=== PATIENT | female | born 1995 | race Two or more races ===

== ENCOUNTER 2017-04-06 12:09 | Emergency (ER) | payer BC ==
[2017-04-06 12:31] VITALS: BP 106/77
--- NOTE | 2017-04-06 14:02 | EDM.PDOC ---
ED HPI GENERAL MEDICAL PROBLEM - General Chief Complaint: Respiratory Problem Stated Complaint: ASTHMA HARD TO BREATHE Time Seen by Provider: 04/06/17 12:36 Source of Information: Reports: Patient History Limitations: Reports: No Limitations - History of Present Illness INITIAL COMMENTS - FREE TEXT/NARRATIVE: The patient presents with cold symptoms and shortness of breath. She has a history of asthma. She does not have her inhaler and she is running out of nebs for her nebulizer. She has a fever, chills, cough, congestion and runny nose. 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 04/06/17 [History] Albuterol Sulfate 2.5 mg IH Q6HR PRN #20 units 04/06/17 [Rx] Albuterol [IJD: Albuterol HFA] 2 puff .XX Q6HR PRN #8 gm 04/06/17 [Rx] Past Medical History Respiratory History: Reports: Asthma Social & Family History - Tobacco Use Smoking Status *Q: Never Smoker - Recreational Drug Use Recreational Drug Use: No ED ROS GENERAL - Review of Systems Review Of Systems: See Below Constitutional: Reports: Fever, Chills HEENT: Reports: Rhinitis, Other (congestion) Respiratory: Reports: Shortness of Breath, Wheezing, Cough Cardiovascular: Reports: No Symptoms Endocrine: Reports: No Symptoms GI/Abdominal: Reports: No Symptoms : Reports: No Symptoms Musculoskeletal: Reports: No Symptoms ED EXAM, GENERAL - Physical Exam Exam: See Below Exam Limited By: No Limitations General Appearance: Alert, No Apparent Distress Ears: Normal External Exam, Normal Canal, Normal TMs Nose: Clear Rhinorrhea Throat/Mouth: Other (Mild erythema of the pharynx) Head: Atraumatic, Normocephalic Neck: Normal Inspection Respiratory/Chest: No Respiratory Distress, Lungs Clear, Normal Breath Sounds Cardiovascular: Regular Rate, Rhythm, No Edema, No Murmur GI/Abdominal: Soft, Non-Tender, No Organomegaly, No Mass Back Exam: Normal Inspection Extremities: Normal Inspection Course - Vital Signs Last Recorded V/S: Last Vital Signs Temp 98.2 F 04/06/17 12:27 Pulse 100 04/06/17 12:27 Resp 20 04/06/17 12:27 BP 106/77 04/06/17 12:27 Pulse Ox 97 04/06/17 12:27 - Orders/Labs/Meds Labs: Laboratory Tests 04/06/17 Range/Units 13:20 HCG, Qual Negative (NEGATIVE) - Re-Assessments/Exams Free Text/Narrative Re-Assessment/Exam: 04/06/17 14:02 The patient asked if I could see if she is . I am waiting for that now. 04/06/17 14:17 Her HCG is negative. Departure - Departure Time of Disposition: 14:20 Disposition: Home, Self-Care 01 Condition: Good Clinical Impression: Viral upper respiratory illness Asthma Qualifiers: Asthma severity: mild intermittent Asthma complication type: with acute exacerbation Qualified Code(s): J45.21 - Mild intermittent asthma with (acute) exacerbation - Discharge Information Prescriptions: Albuterol [IJD: Albuterol HFA] 2 puff .XX Q6HR PRN #8 gm PRN Reason: Wheezing Albuterol Sulfate 2.5 mg IH Q6HR PRN #20 units PRN Reason: Wheezing Referrals: Ester Patino PA-C [Physician Behavioral Health Worker] - 1 Week Forms: ED Department Discharge Additional Instructions: Take the albuterol as needed for shortness of breath. Take some over the counter cold medicine to help with the symptoms.
== END 2017-04-06 14:51 | disposition home or self-care (01) ==
LOC: JD.ED 12:09
DX: J45.21 Mild intermittent asthma with (acute) exacerbation (principal); J06.9 Acute upper respiratory infection, unspecified
CPT/HCPCS: 36415; 84703; 99283

== ENCOUNTER 2017-04-19 03:03 | Emergency (ER) | payer BC ==
[2017-04-19 03:12] VITALS: BP 124/104
[2017-04-19] MEDS ORDERED: Albuterol/Ipratropium 3.0-0.5 MG/3 ML Neb Soln NEB ONE (03:23)
--- NOTE | 2017-04-19 03:24 | EDM.PDOC ---
ED HPI GENERAL MEDICAL PROBLEM - General Chief Complaint: Asthma Stated Complaint: SHARP PAIN LEFT SIDE Time Seen by Provider: 04/19/17 03:23 Source of Information: Reports: Patient History Limitations: Reports: No Limitations - History of Present Illness INITIAL COMMENTS - FREE TEXT/NARRATIVE: 21-year-old female attends the ED with paroxysmal productive cough which she reports been present for about 3 weeks. She has a history of asthma but is getting no relief with her pro-air inhaler tonight she's used it 6 times. She was in the bar and there was quite a bit of smoke this evening which we have been a trigger. She denies any noted fever or chills. Harsh paroxysmal cough with hoarse voice noted. Aware of postnasal drip symptoms as well. Pain in the left side of her chest from coughing so much. Onset: Other (She believes that she's been sick for the last 3-4 weeks.) Duration: Week(s):, Chronic, Getting Worse Location: Reports: Chest (Paroxysmal cough and shortness of breath. Today he has left-sided chest pain from coughing so much) Severity: Moderate Improves with: Reports: None (No relief from Pro Air inhaler.) Worsens with: Reports: Other Context: Denies: Activity (Coughing and exposure to cool night air.), Exercise, Lifting, Sick Contact, Trauma, Other Associated Symptoms: Reports: Cough (Mostly clear sputum), cough w sputum, Shortness of Breath, Other (Left-sided chest pain with coughing.). 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 04/06/17 [History] Albuterol Sulfate 2.5 mg IH Q6HR PRN #20 units 04/06/17 [Rx] Albuterol [IJD: Albuterol HFA] 2 puff .XX Q6HR PRN #8 gm 04/06/17 [Rx] Codeine/Promethazine [Phenergan with Codeine] 10 ml PO Q6HR PRN #150 ml [Rx] predniSONE [Prednisone] 20 mg PO ASDIRECTED #15 tablet 04/19/17 [Rx] Past Medical History Respiratory History: Reports: Asthma Social & Family History - Tobacco Use Smoking Status *Q: Never Smoker - Recreational Drug Use Recreational Drug Use: No - Living Situation & Occupation Living situation: Reports: Single Occupation: Employed ED ROS GENERAL - Review of Systems Review Of Systems: See Below Constitutional: Reports: Malaise, Weakness, Fatigue. Denies: Fever, Chills HEENT: Reports: Other (Aware of postnasal drip and rhinitis.) Respiratory: Reports: Shortness of Breath, Wheezing, Cough. Denies: Pleuritic Chest Pain, Sputum (Paroxysmal coughing.), Hemoptysis Cardiovascular: Reports: Chest Pain. Denies: Blood Pressure Problem, Claudication (See history of present illness), Dyspnea on Exertion, Edema, Lightheadedness, Orthopnea Endocrine: Reports: No Symptoms GI/Abdominal: Reports: No Symptoms : Reports: No Symptoms Musculoskeletal: Reports: No Symptoms Skin: Reports: No Symptoms Neurological: Reports: No Symptoms Psychiatric: Reports: No Symptoms ED EXAM, GENERAL - Physical Exam Exam: See Below Exam Limited By: No Limitations (Does have an intermittent severe paroxysmal cough with hoarse voice.) General Appearance: Moderate Distress Eye Exam: Bilateral Eye: Normal Inspection Ears: Other (Right tympanic membrane is retracted. Left appears to be normal.) Nose: Normal Mucosa, Other Throat/Mouth: Normal Inspection (No nasal polyps.), Normal Lips, Normal Teeth, Normal Oropharynx Head: Atraumatic, Normocephalic Neck: Normal Inspection, Supple, Non-Tender, Full Range of Motion. No: Lymphadenopathy (L), Lymphadenopathy (R) Respiratory/Chest: Respiratory Distress (Harsh paroxysmal cough with respiratory rate of 20/m. O2 sats are 97% on room air over.), Decreased Breath Sounds (Breath sounds are diminished to posterior 20% of lung mendes.), Rhonchi. No: Crackles, Rales, Wheezing, Stridor Cardiovascular: Normal Peripheral Pulses, Regular Rate, Rhythm, No Edema, No Murmur, Tachycardia (However this is after using promote proper inhaler as 6 in the last few hours.) Peripheral Pulses: 3+: Posterior Tibial (L), Posterior Tibial (R), Dorsalis Pedis (L), Dorsalis Pedis (R) GI/Abdominal: Normal Bowel Sounds, Soft, Non-Tender, No Organomegaly Back Exam: Normal Inspection, Full Range of Motion. No: CVA Tenderness (L), CVA Tenderness (R) Extremities: Normal Inspection, Normal Range of Motion, Non-Tender, No Pedal Edema, Normal Capillary Refill Neurological: Alert, Oriented, CN II-XII Intact, Normal Cognition, Other Psychiatric: Normal Affect, Normal Mood Skin Exam: Warm, Dry, Intact, Normal Color, No Rash Course - Vital Signs Last Recorded V/S: Last Vital Signs Temp 36.4 C 04/19/17 03:10 Pulse 110 H 04/19/17 03:10 Resp 20 04/19/17 03:10 BP 124/104 H 04/19/17 03:10 Pulse Ox 99 04/19/17 03:23 - Orders/Labs/Meds Orders: Active Orders 24 hr Category Date Time Status RT Aerosol Therapy [RC] ASDIRECTED Care 04/19/17 03:23 Active Chest 2V [CR] Stat Exams 04/19/17 03:22 Taken Meds: Medications Discontinued Medications Generic Name Dose Route Start Last Admin Trade Name Freq PRN Reason Stop Dose Admin Albuterol/Ipratropium 3 ml 04/19/17 03:23 04/19/17 03:33 Duoneb 3.0-0.5 Mg/3 Ml NEB 04/19/17 03:24 3 ml ONETIME ONE Administration Prednisone 20 mg 04/19/17 03:44 04/19/17 03:56 Prednisone PO 04/19/17 03:45 20 mg ONETIME ONE Administration Promethazine HCl/Codeine 10 ml 04/19/17 03:43 04/19/17 03:55 Phenergan With Codeine PO 04/19/17 03:44 10 ml ONETIME ONE Administration - Radiology Interpretation Free Text/Narrative:: 21-year-old female presents to the ED because of severe paroxysmal cough and left-sided chest pain. She has a history of asthma with no relief from her pro- air inhaler tonight. She states she's been coughing paroxysmal A. fib about 3 weeks. This suggests viral infective disorder versus seasonal allergy exacerbation of asthma. At time of presentation she is satting at 97% with respiratory rate of 20/m. Mild tachycardia at rest 1 10/m. He has decreased air entry to the lower 25% of lung mendes without any wheezes apparent. She was exposed to good deal cigarette smoke and [employer] party and bar tonight and this may have been a trigger. Since she's been ill for 3 weeks two-view chest x-ray will be obtained. She will be given DuoNeb nebulizer treatment and Phenergan With Codeine cough syrup 10 mils to help with paroxysmal coughing. - Re-Assessments/Exams Free Text/Narrative Re-Assessment/Exam: 04/19/17 03:48 two-view chest x-ray is within normal limits showing no signs of pneumonia. I'm therefore going to give her prednisone 20 mg by mouth now and Phenergan with codeine cough syrup 10 mils by mouth now to alleviate cough. It appears that she may well have a primary viral upper respiratory tract infection with aggravation of the upper respiratory tree. I will discharge her on prednisone 20 mg twice daily for 5 days then 1 tablet in the morning only for another 5 days to reduce inflammation. Cough syrup will be Phenergan With Codeine 7.5-10 mils every 6 hours as needed for relief of cough primarily at bedtime. She will continue to use her pro-air inhaler 2 puffs every 4 hours as needed for relief of paroxysmal cough and/or wheezes. Departure - Departure Time of Disposition: 04:06 Disposition: Home, Self-Care 01 Condition: Fair Clinical Impression: Viral upper respiratory tract infection with cough, Exacerbation of asthma - Discharge Information Prescriptions: Codeine/Promethazine [Phenergan with Codeine] 10 ml PO Q6HR PRN #150 ml PRN Reason: Cough relief predniSONE [Prednisone] 20 mg PO ASDIRECTED #15 tablet Referrals: PCP,None [Primary Care Provider] - Forms: ED Department Discharge, ED Return to Work/School Form Additional Instructions: Evaluation in the emergency room tonight in regards to persistent paroxysmal cough with development of left-sided chest pain due to coughing so much. History suggests intermittent paroxysmal cough for the last 3 weeks. History of asthma. No relief with current albuterol inhaler. On examination no wheezes were identified. Hoarseness of the voice with paroxysmal cough appreciated. Two- view x-ray of the chest was obtained to rule out pneumonia since you have been ill for so long. It did not reveal any signs of infection or pneumonia. Reactive airways disease or asthma has been aggravated by either seasonal pollens or suspect viral upper respiratory tract infection. Treatment is therefore to continue albuterol inhaler 2 puffs every 4 hours as needed for relief of wheezing or shortness of breath. Prednisone 20 mg twice daily for 5 days with breakfast and supper and then one in the morning only for another 5 days to reduce inflammation of the airway. Also cough syrup Phenergan With Codeine 10 mils every 6-8 hours as necessary for relief of severe paroxysmal cough. Usually used mostly at nighttime to aid sleep. He takes about an hour to work. You were given a dose of this medication in the ED as well as DuoNeb nebulizer treatment. Prednisone first dose was also given in the ED this morning. - My Orders Last 24 Hours: My Active Orders 04/19/17 03:22 Chest 2V [CR] Stat 04/19/17 03:23 RT Aerosol Therapy [RC] ASDIRECTED - Assessment/Plan Last 24 Hours: My Active Orders 04/19/17 03:22 Chest 2V [CR] Stat 04/19/17 03:23 RT Aerosol Therapy [RC] ASDIRECTED
[2017-04-19] MEDS ORDERED: Codeine/Promethazine 10-6.25 MG/5 ML Syrup 5 ML UD Cup PO ONE (03:43)
[2017-04-19] MEDS ORDERED: predniSONE 20 MG Tab PO ONE (03:44)
--- NOTE | 2017-04-23 08:18 | CR ---
Chest: Two views of the chest were obtained. Comparison: No previous study. Heart size and mediastinum are within normal limits. Central lung markings are slightly increased with minimal bronchial wall thickening. Lungs otherwise are clear. Bony structures are unremarkable. Impression: 1. Slight bronchial wall thickening which can be seen with chronic asthma. 2. Nothing acute is otherwise seen on two-view chest x-ray. Diagnostic code #2
== END 2017-04-19 04:17 | disposition home or self-care (01) ==
LOC: JD.ED 03:03
DX: J45.901 Unspecified asthma with (acute) exacerbation (principal); J06.9 Acute upper respiratory infection, unspecified
CPT/HCPCS: 71020; 94664; 99285; A9270; 99283

== ENCOUNTER 2017-05-20 11:39 | Emergency (ER) | payer BC ==
[2017-05-20 11:58] VITALS: BP 115/72
[2017-05-20] MEDS ORDERED: Ondansetron 4 MG Tab.DIS PO ONE (13:42)
--- NOTE | 2017-05-20 14:01 | EDM.PDOC ---
ED HPI GENERAL MEDICAL PROBLEM - General Chief Complaint: Gastrointestinal Problem Stated Complaint: NAUSEA Time Seen by Provider: 05/20/17 11:58 Source of Information: Reports: Patient, RN Notes Reviewed - History of Present Illness INITIAL COMMENTS - FREE TEXT/NARRATIVE: 21-year-old female comes in with nausea and vomiting for 2 days. That actually now is somewhat better today with no further vomiting this morning. She has not had a menstrual period for 2 months. Therefore she does have some concern of possibly being . Abdominal or pelvic pain or cramping at this time. No vaginal bleeding or discharge. There has been no diarrhea. She does not feel weak or dizzy when standing or walking. Abdominal Pain Score (Numeric/FACES): 7 - Related Data Allergies Allergy/AdvReac Type Severity Reaction Status Date / Time No Known Allergies Allergy Verified 05/20/17 11:54 Home Meds: Home Meds Albuterol Inhaler. 2 puff INH DAILY 04/06/17 [History] Ondansetron [Zofran ODT] 4 mg PO Q8H PRN #7 tab.dis 05/20/17 [Rx] Past Medical History Respiratory History: Reports: Asthma Social & Family History - Tobacco Use Smoking Status *Q: Never Smoker - Recreational Drug Use Recreational Drug Use: No - Living Situation & Occupation Living situation: Reports: Single Occupation: Employed ED ROS GENERAL - Review of Systems Review Of Systems: See Below Constitutional: Denies: Fever, Chills, Diaphoresis HEENT: Reports: No Symptoms Respiratory: Denies: Shortness of Breath, Pleuritic Chest Pain Cardiovascular: Denies: Chest Pain GI/Abdominal: Reports: Nausea, Vomiting. Denies: Abdominal Pain, Diarrhea Musculoskeletal: Reports: No Symptoms Skin: Reports: No Symptoms ED EXAM, GI/ABD - Physical Exam Exam: See Below General Appearance: Alert, No Apparent Distress Eyes: Bilateral: Normal Appearance Throat/Mouth: Normal Inspection, Normal Oropharynx Head: Atraumatic. No: Facial Swelling Neck: Supple, Full Range of Motion Respiratory/Chest: No Respiratory Distress, Lungs Clear, Normal Breath Sounds Cardiovascular: Regular Rate, Rhythm GI/Abdominal Exam: Soft, Non-Tender. No: Guarding Back Exam: Normal Inspection. No: CVA Tenderness (L), CVA Tenderness (R) Extremities: Normal Inspection, Normal Range of Motion Neurological: Alert, Oriented, No Motor/Sensory Deficits Skin Exam: Warm, Dry, Normal Color Course - Vital Signs Text/Narrative:: HCG was negative Last Recorded V/S: Last Vital Signs Temp 98.0 F 05/20/17 11:55 Pulse 90 05/20/17 11:55 Resp 15 05/20/17 11:55 BP 115/72 05/20/17 11:55 Pulse Ox 99 05/20/17 11:55 - Orders/Labs/Meds Labs: Laboratory Tests 05/20/17 Range/Units 13:20 Urine HCG, Qual Negative (NEGATIVE) Meds: Medications Discontinued Medications Generic Name Dose Route Start Last Admin Trade Name Freq PRN Reason Stop Dose Admin Ondansetron HCl 4 mg 05/20/17 13:42 05/20/17 13:54 Zofran Odt PO 05/20/17 13:43 4 mg ONETIME ONE Administration Departure - Departure Time of Disposition: 14:00 Disposition: Home, Self-Care 01 Condition: Fair Clinical Impression: Vomiting - Discharge Information Prescriptions: Ondansetron [Zofran ODT] 4 mg PO Q8H PRN #7 tab.dis PRN Reason: Nausea/Vomiting Referrals: PCP,None [Primary Care Provider] - Forms: ED Department Discharge Additional Instructions: Clear liquids for the next 4-5 hours, then very careful bland diet as tolerated Zofran, if needed for any further vomiting, follow-up clinic as needed, return to ED if symptoms worsening in any way
== END 2017-05-20 14:03 | disposition home or self-care (01) ==
LOC: JD.ED 11:39
DX: R11.2 Nausea with vomiting, unspecified (principal); J45.909 Unspecified asthma, uncomplicated; Z79.899 Other long term (current) drug therapy
CPT/HCPCS: 81025; 99283; A9270

== ENCOUNTER 2017-06-03 13:33 | Emergency (ER) | payer BC ==
[2017-06-03] MEDS ORDERED: Ketorolac 30 MG/ML SDV IM ONE (14:08)
[2017-06-03] MEDS ORDERED: Ondansetron 4 MG Tab.DIS PO ONE (14:08)
--- NOTE | 2017-06-03 14:11 | EDM.PDOC ---
<Perry Mcnally - Last Filed: 06/05/17 07:19> ED HPI GENERAL MEDICAL PROBLEM - General Chief Complaint: Abdominal Pain Stated Complaint: ABDOMINAL PAIN Time Seen by Provider: 06/03/17 14:01 - Related Data Allergies Allergy/AdvReac Type Severity Reaction Status Date / Time No Known Allergies Allergy Verified 05/20/17 11:54 Home Meds: Home Meds Albuterol Inhaler. 2 puff INH DAILY 04/06/17 [History] Amoxicillin 500 mg PO TID #21 tab 06/03/17 [Rx] Course - Vital Signs Last Recorded V/S: Last Vital Signs Temp 36.2 C 06/03/17 13:48 Pulse 95 06/03/17 16:30 Resp 18 06/03/17 16:30 BP 129/66 06/03/17 16:30 Pulse Ox 98 06/03/17 16:30 - Orders/Labs/Meds Labs: Laboratory Tests 06/03/17 06/03/17 06/03/17 Range/Units 14:21 14:21 14:21 WBC 8.73 (3.98-10.04) K/mm3 RBC 4.38 (3.98-5.22) M/mm3 Hgb 11.9 (11.2-15.7) gm/L Hct 36.9 (34.1-44.9) % MCV 84.2 (79.4-94.8) fl MCH 27.2 (25.6-32.2) pg MCHC 32.2 (32.2-35.5) g/dl RDW Std Deviation 45.4 (36.4-46.3) fL Plt Count 380 H (182-369) K/mm3 MPV 8.8 L (9.4-12.3) fl Neut % (Auto) 67.5 (34.0-71.1) % Lymph % (Auto) 19.9 (19.3-51.7) % Bell % (Auto) 8.1 (4.7-12.5) % Eos % (Auto) 3.8 (0.7-5.8) Baso % (Auto) 0.5 (0.1-1.2) % Neut # (Auto) 5.89 (1.56-6.13) K/mm3 Lymph # (Auto) 1.74 (1.18-3.74) K/mm3 Bell # (Auto) 0.71 H (0.24-0.36) K/mm3 Eos # (Auto) 0.33 (0.04-0.36) K/mm3 Baso # (Auto) 0.04 (0.01-0.08) K/mm3 Sodium 140 (136-145) mEq/L Potassium 4.0 (3.5-5.1) mEq/L Chloride 106 (98-107) mEq/L Carbon Dioxide 24 (21-32) mEq/L Anion Gap 14.0 (5-15) BUN 10 (7-18) mg/dL Creatinine 0.7 (0.55-1.02) mg/dL Est Cr Clr Drug Dosing 102.24 mL/min Estimated GFR (MDRD) > 60 (>60) mL/min BUN/Creatinine Ratio 14.3 (14-18) Glucose 95 (74-106) mg/dL Calcium 8.4 L (8.5-10.1) mg/dL Total Bilirubin 0.3 (0.2-1.0) mg/dL AST 12 L (15-37) U/L ALT 14 (14-59) U/L Alkaline Phosphatase 45 L (46-116) U/L C-Reactive Protein < 0.2 (<1.0) mg/dL Total Protein 7.3 (6.4-8.2) g/dl Albumin 3.7 (3.4-5.0) g/dl Globulin 3.6 gm/dL Albumin/Globulin Ratio 1.0 (1-2) HCG, Qual (NEGATIVE) HCG, Quant 1867.0 mIU/mL Urine Color (Yellow) Urine Appearance (Clear) Urine pH (5.0-8.0) Ur Specific [place] (1.005-1.030) Urine Protein (Negative) Urine Glucose (UA) (Negative) Urine Ketones (Negative) Urine Occult Blood (Negative) Urine Nitrite (Negative) Urine Bilirubin (Negative) Urine Urobilinogen (0.2-1.0) Ur Leukocyte Esterase (Negative) Urine RBC (0-5) /hpf Urine WBC (0-5) /hpf Ur Epithelial Cells (0-5) /hpf Urine Bacteria (FEW) /hpf Urine Mucus (FEW) /hpf Urine Opiates Screen (NEGATIVE) Ur Buprenorphine Scrn (NEGATIVE) Ur Oxycodone Screen (NEGATIVE) Urine Methadone Screen (NEGATIVE) Ur Propoxyphene Screen (NEGATIVE) Ur Barbiturates Screen (NEGATIVE) Ur Tricyclics Screen (NEGATIVE) Ur Phencyclidine Scrn (NEGATIVE) Ur Amphetamine Screen (NEGATIVE) U Methamphetamines Scrn (NEGATIVE) U Benzodiazepines Scrn (NEGATIVE) U Cocaine Metab Screen (NEGATIVE) U Marijuana (THC) Screen (NEGATIVE) 06/03/17 06/03/17 06/03/17 Range/Units 14:35 14:35 14:35 WBC (3.98-10.04) K/mm3 RBC (3.98-5.22) M/mm3 Hgb (11.2-15.7) gm/L Hct (34.1-44.9) % MCV (79.4-94.8) fl MCH (25.6-32.2) pg MCHC (32.2-35.5) g/dl RDW Std Deviation (36.4-46.3) fL Plt Count (182-369) K/mm3 MPV (9.4-12.3) fl Neut % (Auto) (34.0-71.1) % Lymph % (Auto) (19.3-51.7) % Bell % (Auto) (4.7-12.5) % Eos % (Auto) (0.7-5.8) Baso % (Auto) (0.1-1.2) % Neut # (Auto) (1.56-6.13) K/mm3 Lymph # (Auto) (1.18-3.74) K/mm3 Bell # (Auto) (0.24-0.36) K/mm3 Eos # (Auto) (0.04-0.36) K/mm3 Baso # (Auto) (0.01-0.08) K/mm3 Sodium (136-145) mEq/L Potassium (3.5-5.1) mEq/L Chloride (98-107) mEq/L Carbon Dioxide (21-32) mEq/L Anion Gap (5-15) BUN (7-18) mg/dL Creatinine (0.55-1.02) mg/dL Est Cr Clr Drug Dosing mL/min Estimated GFR (MDRD) (>60) mL/min BUN/Creatinine Ratio (14-18) Glucose (74-106) mg/dL Calcium (8.5-10.1) mg/dL Total Bilirubin (0.2-1.0) mg/dL AST (15-37) U/L ALT (14-59) U/L Alkaline Phosphatase (46-116) U/L C-Reactive Protein (<1.0) mg/dL Total Protein (6.4-8.2) g/dl Albumin (3.4-5.0) g/dl Globulin gm/dL Albumin/Globulin Ratio (1-2) HCG, Qual Positive H (NEGATIVE) HCG, Quant mIU/mL Urine Color Yellow (Yellow) Urine Appearance Slt cloudy H (Clear) Urine pH 7.0 (5.0-8.0) Ur Specific [place] 1.025 (1.005-1.030) Urine Protein Negative (Negative) Urine Glucose (UA) Negative (Negative) Urine Ketones Negative (Negative) Urine Occult Blood 1+ H (Negative) Urine Nitrite Positive H (Negative) Urine Bilirubin Negative (Negative) Urine Urobilinogen 0.2 (0.2-1.0) Ur Leukocyte Esterase 1+ H (Negative) Urine RBC 0-5 (0-5) /hpf Urine WBC 10-20 H (0-5) /hpf Ur Epithelial Cells 0-5 (0-5) /hpf Urine Bacteria Many H (FEW) /hpf Urine Mucus Not seen (FEW) /hpf Urine Opiates Screen Negative (NEGATIVE) Ur Buprenorphine Scrn Negative (NEGATIVE) Ur Oxycodone Screen Negative (NEGATIVE) Urine Methadone Screen Negative (NEGATIVE) Ur Propoxyphene Screen Negative (NEGATIVE) Ur Barbiturates Screen Negative (NEGATIVE) Ur Tricyclics Screen Negative (NEGATIVE) Ur Phencyclidine Scrn Negative (NEGATIVE) Ur Amphetamine Screen Negative (NEGATIVE) U Methamphetamines Scrn Negative (NEGATIVE) U Benzodiazepines Scrn Negative (NEGATIVE) U Cocaine Metab Screen Negative (NEGATIVE) U Marijuana (THC) Screen Negative (NEGATIVE) Meds: Medications Discontinued Medications Generic Name Dose Route Start Last Admin Trade Name Freq PRN Reason Stop Dose Admin Ketorolac Tromethamine 30 mg 06/03/17 14:08 06/03/17 14:18 Toradol IM 06/03/17 14:09 30 mg ONETIME ONE Administration Ondansetron HCl 4 mg 06/03/17 14:08 06/03/17 14:18 Zofran Odt PO 06/03/17 14:09 4 mg ONETIME ONE Administration - Re-Assessments/Exams Free Text/Narrative Re-Assessment/Exam: 06/05/17 07:19 urine culture is back. Is growing Escherichia coli greater than 100,000 colony-forming units per mL. It is sensitive to all antibiotics. Patient was started on amoxicillin 500 3 times a day which should cover this organism. Departure - Departure Disposition: Home, Self-Care 01 Clinical Impression: , Constipation, Urinary tract infection - Discharge Information Prescriptions: Amoxicillin 500 mg PO TID #21 tab Instructions: Constipation, Adult, [id number], Urinary Tract Infection, Adult Referrals: PCP,None [Primary Care Provider] - Chandra Olivares MD [Physician] - Forms: ED Department Discharge Additional Instructions: Take the amoxicillin one tablet 3 times a day for 7 days as prescribed. This medication has been [place]. For the nausea recommend [id number] Dramamine. For the constipation recommend [id number] Colace or Metamucil. For pain may take Tylenol. Avoid ibuprofen, aspirin, NSAIDs, Aleve, etc. during . Make sure you are drinking plenty of fluids. Drink approximately half of your body weight in ounces and fluids every day. Follow-up with OB this week or next week for a recheck of your symptoms and help to establish dates. At the [facility] recommend Dr. Olivares, Dr. Senior or Dr. Coker. Please call [phone] to schedule with a provider at [facility]. If you would like a female see a provider, see a provider at [facility]. recommend Dr. Arthur or Dr. Tran. Please call [phone] to schedule the provider at [place]. Please return to the ER if your symptoms change or worsen. <Marisol Serrano - Last Filed: 06/06/17 07:49> ED HPI GENERAL MEDICAL PROBLEM - General Source of Information: Reports: Patient History Limitations: Reports: No Limitations - History of Present Illness INITIAL COMMENTS - FREE TEXT/NARRATIVE: 21-year-old female presents for evaluation and treatment of abdominal pain. Patient reports that is located in her lower abdomen. Reports it is episodic in nature. She reports that it was this worse morning this is why she presented to the ER today. Has been going on since around May 18. She states it as a 10 out of 10 when she woke this morning. She was seen in the ER 05-20-17. She had a negative hCG and was given Zofran. She has not followed up for the abdominal pain. Patient reports associated symptoms of nausea and vomiting. Reports that she vomited one time this morning. Reports that her last bowel movement was yesterday. No fevers, dysuria, hematuria, constipation, diarrhea, melena or hematochezia. She reports no decreased appetite. Reports last menstrual period was about 3 months ago. Patient denies any ill contacts or any recent antibiotics. She denies any illicit drug use. Patient reports she relocated from [place] about 2 months ago. No other recent travel. Denies any previous surgeries to her abdomen. Lower Abdomen Pain Score (Numeric/FACES): 10 Past Medical History Respiratory History: Reports: Asthma Social & Family History - Tobacco Use Smoking Status *Q: Current Every Day Smoker Years of Tobacco use: 1 Packs/Tins Daily: 0.5 - Caffeine Use Caffeine Use: Reports: Tea - Recreational Drug Use Recreational Drug Use: No - Living Situation & Occupation Living situation: Reports: Single Occupation: Employed ED ROS GENERAL - Review of Systems Review Of Systems: See Below Constitutional: Denies: Fever, Decreased Appetite HEENT: Denies: Ear Pain, Throat Pain Respiratory: Denies: Cough GI/Abdominal: Reports: Abdominal Pain, Nausea, Vomiting. Denies: Constipation, Diarrhea, Hematochezia, Melena : Reports: No Symptoms. Denies: Dysuria, Hematuria Musculoskeletal: Denies: Back Pain ED EXAM, GI/ABD - Physical Exam Exam: See Below Exam Limited By: No Limitations General Appearance: Alert, WD/WN, No Apparent Distress Respiratory/Chest: No Respiratory Distress, Lungs Clear, Normal Breath Sounds Cardiovascular: Normal Peripheral Pulses, Regular Rate, Rhythm, No Murmur GI/Abdominal Exam: Normal Bowel Sounds, Soft, Tender (generalized), Other ( negative mubursnies sign, negative murphys sign). No: Distended, Guarding, Rigid Neurological: Alert, Oriented, Normal Cognition Psychiatric: Normal Affect, Normal Mood Skin Exam: Warm, Dry, Normal Color Course - Orders/Labs/Meds Labs: Laboratory Tests 06/03/17 06/03/17 06/03/17 Range/Units 14:21 14:21 14:21 WBC 8.73 (3.98-10.04) K/mm3 RBC 4.38 (3.98-5.22) M/mm3 Hgb 11.9 (11.2-15.7) gm/L Hct 36.9 (34.1-44.9) % MCV 84.2 (79.4-94.8) fl MCH 27.2 (25.6-32.2) pg MCHC 32.2 (32.2-35.5) g/dl RDW Std Deviation 45.4 (36.4-46.3) fL Plt Count 380 H (182-369) K/mm3 MPV 8.8 L (9.4-12.3) fl Neut % (Auto) 67.5 (34.0-71.1) % Lymph % (Auto) 19.9 (19.3-51.7) % Bell % (Auto) 8.1 (4.7-12.5) % Eos % (Auto) 3.8 (0.7-5.8) Baso % (Auto) 0.5 (0.1-1.2) % Neut # (Auto) 5.89 (1.56-6.13) K/mm3 Lymph # (Auto) 1.74 (1.18-3.74) K/mm3 Bell # (Auto) 0.71 H (0.24-0.36) K/mm3 Eos # (Auto) 0.33 (0.04-0.36) K/mm3 Baso # (Auto) 0.04 (0.01-0.08) K/mm3 Sodium 140 (136-145) mEq/L Potassium 4.0 (3.5-5.1) mEq/L Chloride 106 (98-107) mEq/L Carbon Dioxide 24 (21-32) mEq/L Anion Gap 14.0 (5-15) BUN 10 (7-18) mg/dL Creatinine 0.7 (0.55-1.02) mg/dL Est Cr Clr Drug Dosing 102.24 mL/min Estimated GFR (MDRD) > 60 (>60) mL/min BUN/Creatinine Ratio 14.3 (14-18) Glucose 95 (74-106) mg/dL Calcium 8.4 L (8.5-10.1) mg/dL Total Bilirubin 0.3 (0.2-1.0) mg/dL AST 12 L (15-37) U/L ALT 14 (14-59) U/L Alkaline Phosphatase 45 L (46-116) U/L C-Reactive Protein < 0.2 (<1.0) mg/dL Total Protein 7.3 (6.4-8.2) g/dl Albumin 3.7 (3.4-5.0) g/dl Globulin 3.6 gm/dL Albumin/Globulin Ratio 1.0 (1-2) HCG, Qual (NEGATIVE) HCG, Quant 1867.0 mIU/mL Urine Color (Yellow) Urine Appearance (Clear) Urine pH (5.0-8.0) Ur Specific [place] (1.005-1.030) Urine Protein (Negative) Urine Glucose (UA) (Negative) Urine Ketones (Negative) Urine Occult Blood (Negative) Urine Nitrite (Negative) Urine Bilirubin (Negative) Urine Urobilinogen (0.2-1.0) Ur Leukocyte Esterase (Negative) Urine RBC (0-5) /hpf Urine WBC (0-5) /hpf Ur Epithelial Cells (0-5) /hpf Urine Bacteria (FEW) /hpf Urine Mucus (FEW) /hpf Urine Opiates Screen (NEGATIVE) Ur Buprenorphine Scrn (NEGATIVE) Ur Oxycodone Screen (NEGATIVE) Urine Methadone Screen (NEGATIVE) Ur Propoxyphene Screen (NEGATIVE) Ur Barbiturates Screen (NEGATIVE) Ur Tricyclics Screen (NEGATIVE) Ur Phencyclidine Scrn (NEGATIVE) Ur Amphetamine Screen (NEGATIVE) U Methamphetamines Scrn (NEGATIVE) U Benzodiazepines Scrn (NEGATIVE) U Cocaine Metab Screen (NEGATIVE) U Marijuana (THC) Screen (NEGATIVE) 06/03/17 06/03/17 06/03/17 Range/Units 14:35 14:35 14:35 WBC (3.98-10.04) K/mm3 RBC (3.98-5.22) M/mm3 Hgb (11.2-15.7) gm/L Hct (34.1-44.9) % MCV (79.4-94.8) fl MCH (25.6-32.2) pg MCHC (32.2-35.5) g/dl RDW Std Deviation (36.4-46.3) fL Plt Count (182-369) K/mm3 MPV (9.4-12.3) fl Neut % (Auto) (34.0-71.1) % Lymph % (Auto) (19.3-51.7) % Bell % (Auto) (4.7-12.5) % Eos % (Auto) (0.7-5.8) Baso % (Auto) (0.1-1.2) % Neut # (Auto) (1.56-6.13) K/mm3 Lymph # (Auto) (1.18-3.74) K/mm3 Bell # (Auto) (0.24-0.36) K/mm3 Eos # (Auto) (0.04-0.36) K/mm3 Baso # (Auto) (0.01-0.08) K/mm3 Sodium (136-145) mEq/L Potassium (3.5-5.1) mEq/L Chloride (98-107) mEq/L Carbon Dioxide (21-32) mEq/L Anion Gap (5-15) BUN (7-18) mg/dL Creatinine (0.55-1.02) mg/dL Est Cr Clr Drug Dosing mL/min Estimated GFR (MDRD) (>60) mL/min BUN/Creatinine Ratio (14-18) Glucose (74-106) mg/dL Calcium (8.5-10.1) mg/dL Total Bilirubin (0.2-1.0) mg/dL AST (15-37) U/L ALT (14-59) U/L Alkaline Phosphatase (46-116) U/L C-Reactive Protein (<1.0) mg/dL Total Protein (6.4-8.2) g/dl Albumin (3.4-5.0) g/dl Globulin gm/dL Albumin/Globulin Ratio (1-2) HCG, Qual Positive H (NEGATIVE) HCG, Quant mIU/mL Urine Color Yellow (Yellow) Urine Appearance Slt cloudy H (Clear) Urine pH 7.0 (5.0-8.0) Ur Specific [place] 1.025 (1.005-1.030) Urine Protein Negative (Negative) Urine Glucose (UA) Negative (Negative) Urine Ketones Negative (Negative) Urine Occult Blood 1+ H (Negative) Urine Nitrite Positive H (Negative) Urine Bilirubin Negative (Negative) Urine Urobilinogen 0.2 (0.2-1.0) Ur Leukocyte Esterase 1+ H (Negative) Urine RBC 0-5 (0-5) /hpf Urine WBC 10-20 H (0-5) /hpf Ur Epithelial Cells 0-5 (0-5) /hpf Urine Bacteria Many H (FEW) /hpf Urine Mucus Not seen (FEW) /hpf Urine Opiates Screen Negative (NEGATIVE) Ur Buprenorphine Scrn Negative (NEGATIVE) Ur Oxycodone Screen Negative (NEGATIVE) Urine Methadone Screen Negative (NEGATIVE) Ur Propoxyphene Screen Negative (NEGATIVE) Ur Barbiturates Screen Negative (NEGATIVE) Ur Tricyclics Screen Negative (NEGATIVE) Ur Phencyclidine Scrn Negative (NEGATIVE) Ur Amphetamine Screen Negative (NEGATIVE) U Methamphetamines Scrn Negative (NEGATIVE) U Benzodiazepines Scrn Negative (NEGATIVE) U Cocaine Metab Screen Negative (NEGATIVE) U Marijuana (THC) Screen Negative (NEGATIVE) - Radiology Interpretation Free Text/Narrative:: KUB of the abdomen shows increased stool throughout the colon. No air fluid lines - Re-Assessments/Exams Free Text/Narrative Re-Assessment/Exam: 06/03/17 16:14 I reviewed the labs and x-ray results with the patient. Her abdominal pain and nausea is likely from her , urinary tract infection or possibly be could be from constipation. I will start her on antibiotics for the UTI. She will be given a list of medications that are ok to take during for the constipation and nausea. I will have her follow-up with OB to establish dates and because of the UTI. Discharge instructions as documented. Departure - Departure Time of Disposition: 16:16 Condition: Good
--- NOTE | 2017-06-03 15:01 | CR ---
Abdomen: Supine view of the abdomen was obtained. Comparison: No previous study. Bowel gas pattern is normal. No abnormal calcifications or soft tissue abnormality is seen. Bony structures are unremarkable. Impression: 1. No abnormality is seen on supine abdominal x-ray. Diagnostic code #1
[2017-06-03 16:51] VITALS: BP 129/66
== END 2017-06-03 16:30 | disposition home or self-care (01) ==
LOC: JD.ED 13:33
DX: O99.619 Diseases of the digestive system complicating pregnancy, unspecified trimester (principal); K59.01 Slow transit constipation; O23.40 Unspecified infection of urinary tract in pregnancy, unspecified trimester; O99.519 Diseases of the respiratory system complicating pregnancy, unspecified trimester; J45.909 Unspecified asthma, uncomplicated; O99.330 Smoking (tobacco) complicating pregnancy, unspecified trimester; F17.210 Nicotine dependence, cigarettes, uncomplicated; Z79.899 Other long term (current) drug therapy
CPT/HCPCS: 36415; 74000; 80053; 80306; 81001; 84702; 84703; 85025; 86140; 87086; 87088; 87186; 96372; 99284; A9270; J1885; 99283

== ENCOUNTER 2017-07-14 09:29 | Emergency (ER) | payer BC ==
[2017-07-14 09:47] VITALS: BP 109/69
[2017-07-14] MEDS ORDERED: Lactated Ringers 1,000 ML IV ONE (10:52)
[2017-07-14] MEDS ORDERED: Metoclopramide 10 MG/2 ML SDV IVPUSH ONE (10:53)
[2017-07-14] MEDS ORDERED: Sodium Chloride 0.9% 10 ML Syringe FLUSH PRN (10:53)
--- NOTE | 2017-07-14 12:27 | EDM.PDOC ---
ED HPI GENERAL MEDICAL PROBLEM - General Chief Complaint: Gastrointestinal Problem Stated Complaint: ABDOMINAL PAIN Time Seen by Provider: 07/14/17 10:47 Source of Information: Reports: Patient, Old Records (clinic ob notes) History Limitations: Reports: No Limitations - History of Present Illness INITIAL COMMENTS - FREE TEXT/NARRATIVE: 21-year-old female presents for evaluation treatment of nausea and vomiting. Patient is approximately 11 weeks Last menstrual period was sometime in March. . She is currently complaining of nausea and vomiting. Vomited about 4or 5 times yesterday but has not vomited today. She reports she can't keep anything down. She is having some cramps on the left side of her pelvis but no back pain, dysuria, vaginal bleeding or fevers. Patient reports she had an early OB ultrasound and states everything is fine with her . Patient reports she has been prescribed diclegis for nausea but was not able to afford it and therefore has not filled it. - Related Data Allergies Allergy/AdvReac Type Severity Reaction Status Date / Time No Known Allergies Allergy Verified 07/14/17 09:47 Home Meds: Home Meds Albuterol Inhaler. 2 puff INH DAILY 04/06/17 [History] Cephalexin [IJD: Cephalexin] 500 mg PO .EVERY 8 HOURS #21 cap 07/14/17 [Rx] Cephalexin. 1 tab PO QID 07/14/17 [History] Past Medical History Respiratory History: Reports: Asthma Genitourinary History: Reports: UTI, Recurrent Social & Family History - Tobacco Use Smoking Status *Q: Never Smoker Years of Tobacco use: 1 Packs/Tins Daily: 0.5 - Caffeine Use Caffeine Use: Reports: None - Recreational Drug Use Recreational Drug Use: No - Living Situation & Occupation Living situation: Reports: Single Occupation: Employed ED ROS GENERAL - Review of Systems Review Of Systems: See Below Constitutional: Denies: Fever GI/Abdominal: Reports: Abdominal Pain (left sided lower abdominal cramps), Nausea, Vomiting : Reports: Other (no vaginal bleeding). Denies: Dysuria ED EXAM - Physical Exam Exam: See Below Exam Limited By: No Limitations General Appearance: Alert, WD/WN, No Apparent Distress Ears: Normal External Exam Nose: Normal Inspection Throat/Mouth: Normal Inspection, Normal Lips, Normal Voice, No Airway Compromise , Other (moist mucus membranes) Respiratory/Chest: No Respiratory Distress, Lungs Clear, Normal Breath Sounds Cardiovascular: Normal Peripheral Pulses, Regular Rate, Rhythm, No Murmur GI/Abdominal Exam: Normal Bowel Sounds, Soft, Non-Tender Heart Tones: Present Heart Tones per Min: 170 Back Exam: Normal Inspection Neurological: Alert, Oriented, Normal Cognition Psychiatric: Normal Affect, Normal Mood Skin Exam: Warm, Dry, Normal Color Course - Vital Signs Last Recorded V/S: Last Vital Signs Temp 36.4 C 07/14/17 09:45 Pulse 84 07/14/17 09:45 Resp 16 07/14/17 09:45 BP 109/69 07/14/17 09:45 Pulse Ox 98 07/14/17 09:45 - Orders/Labs/Meds Orders: Active Orders 24 hr Category Date Time Status Heart Tones [RC] ASDIRECTED Care 07/14/17 10:53 Active Peripheral IV Care [RC] . DIRECTED Care 07/14/17 10:53 Active CULTURE URINE [RM] Stat Lab 07/14/17 12:20 Received Peripheral IV Insertion Adult [OM.PC] Routine Oth 07/14/17 10:52 Ordered Labs: Laboratory Tests 07/14/17 07/14/17 07/14/17 Range/Units 11:11 11:11 12:20 WBC 6.96 (3.98-10.04) K/mm3 RBC 4.56 (3.98-5.22) M/mm3 Hgb 12.3 (11.2-15.7) gm/L Hct 37.7 (34.1-44.9) % MCV 82.7 (79.4-94.8) fl MCH 27.0 (25.6-32.2) pg MCHC 32.6 (32.2-35.5) g/dl RDW Std Deviation 45.3 (36.4-46.3) fL Plt Count 342 (182-369) K/mm3 MPV 9.1 L (9.4-12.3) fl Neut % (Auto) 68.9 (34.0-71.1) % Lymph % (Auto) 21.6 (19.3-51.7) % [place] % (Auto) 6.6 (4.7-12.5) % Eos % (Auto) 2.4 (0.7-5.8) Baso % (Auto) 0.4 (0.1-1.2) % Neut # (Auto) 4.79 (1.56-6.13) K/mm3 Lymph # (Auto) 1.50 (1.18-3.74) K/mm3 [place] # (Auto) 0.46 H (0.24-0.36) K/mm3 Eos # (Auto) 0.17 (0.04-0.36) K/mm3 Baso # (Auto) 0.03 (0.01-0.08) K/mm3 Sodium 138 (136-145) mEq/L Potassium 4.0 (3.5-5.1) mEq/L Chloride 105 (98-107) mEq/L Carbon Dioxide 22 (21-32) mEq/L Anion Gap 15.0 (5-15) BUN 9 (7-18) mg/dL Creatinine 0.6 (0.55-1.02) mg/dL Est Cr Clr Drug Dosing 119.28 mL/min Estimated GFR (MDRD) > 60 (>60) mL/min BUN/Creatinine Ratio 15.0 (14-18) Glucose 88 (74-106) mg/dL Calcium 8.8 (8.5-10.1) mg/dL Total Bilirubin 0.3 (0.2-1.0) mg/dL AST 17 (15-37) U/L ALT 18 (14-59) U/L Alkaline Phosphatase 37 L (46-116) U/L Total Protein 7.1 (6.4-8.2) g/dl Albumin 3.6 (3.4-5.0) g/dl Globulin 3.5 gm/dL Albumin/Globulin Ratio 1.0 (1-2) Urine Color Yellow (Yellow) Urine Appearance Slt cloudy H (Clear) Urine pH 7.0 (5.0-8.0) Ur Specific [place] 1.015 (1.005-1.030) Urine Protein Negative (Negative) Urine Glucose (UA) Negative (Negative) Urine Ketones Negative (Negative) Urine Occult Blood Trace-intact H (Negative) Urine Nitrite Negative (Negative) Urine Bilirubin Negative (Negative) Urine Urobilinogen 0.2 (0.2-1.0) Ur Leukocyte Esterase 3+ H (Negative) Urine RBC 0-5 (0-5) /hpf Urine WBC 40-50 H (0-5) /hpf Ur Epithelial Cells 5-10 H (0-5) /hpf Urine Bacteria Moderate H (FEW) /hpf Urine Mucus Not seen (FEW) /hpf Urine Trichomonas Few Meds: Medications Discontinued Medications Generic Name Dose Route Start Last Admin Trade Name Evon PRN Reason Stop Dose Admin Lactated Ringer's 1,000 mls @ 999 mls/hr 07/14/17 10:52 07/14/17 11:26 Ringers, Lactated IV 07/14/17 11:52 999 mls/hr .BOLUS ONE Administration Metoclopramide HCl 5 mg 07/14/17 10:53 07/14/17 11:26 Reglan IVPUSH 07/14/17 10:54 5 mg ONETIME ONE Administration Sodium Chloride 10 ml 07/14/17 10:53 07/14/17 11:26 Saline Flush FLUSH 10 ml ASDIRECTED PRN Administration Keep Vein Open - Re-Assessments/Exams Free Text/Narrative Re-Assessment/Exam: 07/14/17 12:59 I reviewed the lab results with the patient. Awaiting heart tones. She is eating rice at this point. I will have her do inqu-xem-aeletkl medications. I'll write her prescription for a diclegis like compound at [facility] which is more affordable than the prescription tfor diclegis . Patient has a Urinary tract infection. Review of her records from the clinic shows she was started on a seven-day course of cephalexin on 06-29-17. She tells me that she is was started on the and she still is 3 days left. She takes 2-4 tabs of cephalexin per day. Obviously not taking this as prescribed. Review of her previous culture showed Escherichia coli was susceptible to cephalexin. 07/14/17 13:00 heart tones are present 170 bpm. We will discharge her home at this time. Discharge instructions as documented. Departure - Departure Time of Disposition: 13:01 Disposition: Home, Self-Care 01 Condition: Good Clinical Impression: , Urinary tract infection, Nausea - Discharge Information Prescriptions: Cephalexin [IJD: Cephalexin] 500 mg PO .EVERY 8 HOURS #21 cap Instructions: Urinary Tract Infection, Adult, Nausea and Vomiting, Adult Referrals: PCP,None [Primary Care Provider] - Terry Coker MD [Physician] - Forms: ED Department Discharge Additional Instructions: Take the prescription for a the diclegis like prescription to [facility] pharmacy to have this compounded for you. Take 1 At hours sleep. may increase to 3 times a day if needed for nausea and vomiting. Follow-up with Dr. Coker next week as planned. Cephalexin 1 tab 3 times a day 7 days. make sure you are drinking plenty of fluids. Drink about half you body weight in ounces of fluids every day. if you cannot afford the prescription of [facility] recommend [id number] Dramamine, michael, vitamin B6 or Unisom for nausea. Please return to the ER if your symptoms change or worsen. - My Orders Last 24 Hours: My Active Orders 07/14/17 10:52 Peripheral IV Insertion Adult [OM.PC] Routine 07/14/17 10:53 Heart Tones [RC] ASDIRECTED Peripheral IV Care [RC] . DIRECTED 07/14/17 12:20 CULTURE URINE [RM] Stat - Assessment/Plan Last 24 Hours: My Active Orders 07/14/17 10:52 Peripheral IV Insertion Adult [OM.PC] Routine 07/14/17 10:53 Heart Tones [RC] ASDIRECTED Peripheral IV Care [RC] . DIRECTED 07/14/17 12:20 CULTURE URINE [RM] Stat
== END 2017-07-14 13:42 | disposition home or self-care (01) ==
LOC: JD.ED 09:29
DX: O23.41 Unspecified infection of urinary tract in pregnancy, first trimester (principal); Z3A.11 11 weeks gestation of pregnancy; Z79.899 Other long term (current) drug therapy
CPT/HCPCS: 36415; 80053; 81001; 85025; 87086; 96361; 96374; 99284; J2765; J7050; J7120; 99283

== ENCOUNTER 2017-10-10 21:42 | Emergency (ER) | payer SELFPAY ==
[2017-10-10 21:56] VITALS: BP 137/87
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
== END 2017-10-10 22:30 | disposition home or self-care (01) ==
LOC: JD.ED 21:42
DX: O9A.212 Injury, poisoning and certain other consequences of external causes complicating pregnancy, second trimester (principal); S00.83XA Contusion of other part of head, initial encounter; O21.9 Vomiting of pregnancy, unspecified; O99.512 Diseases of the respiratory system complicating pregnancy, second trimester; J45.909 Unspecified asthma, uncomplicated; W51.XXXA Accidental striking against or bumped into by another person, initial encounter; Y99.0 Civilian activity done for income or pay; Z79.899 Other long term (current) drug therapy
CPT/HCPCS: 99283

== ENCOUNTER 2017-11-10 09:11 | Inpatient (IN) | payer SELFPAY ==
[2017-11-10] MEDS ORDERED: Acetaminophen/oxyCODONE 325-5 MG Tab PO ONE (12:26)
[2017-11-10] MEDS ORDERED: cefTRIAXone 2 GM, Lidocaine 1% 2.1 ML IM ONE ×2 (12:31)
--- NOTE | 2017-11-10 14:18 | US ---
Abdominal ultrasound: Multiple real-time images were obtained of the abdomen. Right-sided hydronephrosis is seen. This is most likely due to hydronephrosis of . Several small filling defects are seen within the dilated collecting systems which may represent globular debris or poorly shadowing renal stones. Left kidney is unremarkable. Pancreas is incompletely seen. Visualized portions of the pancreas are unremarkable. Liver shows no focal parenchymal abnormality. Small polyp is noted within the gallbladder measuring 4 mm. No definite shadowing gallstones are seen. No gallbladder wall thickening or biliary duct dilatation is seen. Aorta shows no aneurysmal dilatation. Inferior vena cava is patent. Portal vein shows normal hepatopedal flow. Impression: 1. Right-sided hydronephrosis. This most likely represents hydronephrosis of if patient has no symptoms of right ureteral obstruction. 2. Two filling defects within the dilated collecting system of the right kidney which show no significant shadowing. Uncertain if this represents globular debris or poorly shadowing renal stones. 3. Small gallbladder polyp. No additional abnormality is definitely seen on abdominal ultrasound exam. Diagnostic code #3
[2017-11-10] MEDS ORDERED: Lactated Ringers 1,000 ML IV ONE (15:17)
[2017-11-10] MEDS ORDERED: Ondansetron 4 MG Tab.DIS PO PRN (15:17)
[2017-11-10] MEDS ORDERED: Sodium Chloride 0.9% 10 ML Syringe FLUSH PRN (15:17)
[2017-11-10] MEDS ORDERED: HYDROmorphone 1 MG/ML Syringe IVPUSH PRN (15:21)
[2017-11-10] MEDS ORDERED: Lactated Ringers 1,000 ML IV SCH (15:30)
[2017-11-10] MEDS: Sodium Chloride 0.9% 1,000 ML IV ONE ×2 (16:26→19:46)
[2017-11-10] MEDS: cefTRIAXone 2 GM in Sodium Chloride 0.9% 100 ML IV SCH (16:31)
[2017-11-10] MEDS: Magnesium Hydroxide 400 MG/5 ML Susp 30 ML Cup PO SCH (16:32)
[2017-11-10] MEDS: Docusate Sodium 100 MG Cap PO SCH (16:32)
[2017-11-10] MEDS: Acetaminophen/oxyCODONE 325-5 MG Tab PO PRN (19:45)
[2017-11-10] MEDS: Sodium Chloride 0.9% 1,000 ML IV SCH (20:33)
--- NOTE | 2017-11-10 22:08 | PCM.LDHP ---
L&D History of Present Illness - General Date of Service: 11/10/17 Admit Problem/Dx: Patient Status Order with Admit Dx/Problem 11/10/17 10:17 Patient Status [ADT] Routine 11/10/17 16:00 Admission Status [Patient Status] [ADT] Routine Admission Diagnosis/Problem Admission Diagnosis/Problem Source of Information: Patient History Limitations: Reports: No Limitations - History of Present Illness Introduction:: Ama Suárez is a 22 year old at 28 weeks 0 days who presented for evaluation of abdominal pain. She reports that the pain is located in her lower stomach more on the right side of her abdomen and radiates to her back. She reports that the pain is constant and has not been made worse or better with any interventions. She rates the pain at 10/10. She does not recall any event that lead to the pain starting. She denies anything similar in the past. She was previously diagnosed with recurrent UTIs in and was on Macrobid 100 mg PO nightly for UTI prophylaxis. She reports that she has been taking the Macrobid nightly as prescribed. She denies any vaginal bleeding or leakage of fluid. She reports good movement. She denies any uterine cramping or contractions. Timing/Duration: Reports: day(s): (3), getting worse Location, : Reports: Abdomen, Lower back Quality: Reports: Sharp Severity: Severe Pain Score: 10 Improves with: Reports: None Worsens with: Reports: None Present Illness Comments:: Ama Suárez is a 22 year old at 28 weeks 0 days by 6 week ultrasound. She has had routine care since 6 weeks. Her has been complicated by chlamydia infection in s/p treatment, recurrent UTI in on Macrobid for prophylaxis, anemia of , and prolonged nausea and vomiting of resolved. Her labs show B positive blood type with negative antibodies. She had a hemoglobin of 12.2 on 2016. Her platelets were 400 on 06/29/2017. She is rubella immune and had negative RPR, HBsAg and HIV. Her initial GC/CT swab was negative. Her urine culture was positive for E. coli at her initial visit and she was treated for this with Macrobid. She had a positive swab for chlamydia on 08/16/2017. She had a negative test of cure swab on 09/07/2017. She had a normal anatomy U/S on . Her 1 hour GTT was 109. Her hemoglobin was 9.9 on 10/16/2017 and she was started on iron supplementation at that time. She had a urine culture on 09/07 that showed enterococcus faecalis with greater than 100,000 CFU. She was treated with Macrobid at that time. She had a repeat urine culture that again showed positive enterococcus faecalis on 10/10/2017 and was started on Macrobid for treatment and then transitioned to Macrobid 100 mg nightly for prophylaxis. - Related Data Allergies/Adverse Reactions: Allergies Allergy/AdvReac Type Severity Reaction Status Date / Time No Known Allergies Allergy Verified 10/10/17 23:26 Home Medications: Home Meds Albuterol Inhaler. 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: Psychiatric History: Reports: Depression, Suicide Attempt, Suicidal Ideation, Other (See Below) Other Psychiatric History: attempt 2011, 2014, pt denies current depression Social & Family History - Family History Family Medical History: Noncontributory - Tobacco Use Smoking Status *Q: Former Smoker Years of Tobacco use: 2 Packs/Tins Daily: 0.5 Used Tobacco, but Quit: Yes Month/Year Tobacco Last Used: 01/2017 Second Hand Smoke Exposure: No - Caffeine Use Caffeine Use: Reports: None - Recreational Drug Use Recreational Drug Use: No - Living Situation & Occupation Living situation: Reports: Single Occupation: Employed H&P Review of Systems - Review of Systems: Review Of Systems: See Below General: Reports: Malaise, Fatigue. Denies: Fever, Chills HEENT: Denies: Visual Changes Pulmonary: Reports: Wheezing. Denies: Shortness of Breath Cardiovascular: Denies: Chest Pain, Palpitations Gastrointestinal: Reports: Abdominal Pain, Constipation, Nausea. Denies: Diarrhea, Vomiting Genitourinary: Reports: Dysuria, Frequency, Burning, Flank Pain Musculoskeletal: Reports: Back Pain. Denies: Joint Pain, Muscle Pain Neurological: Denies: Headache L&D Exam - Exam Exam: See Below - Vital Signs Vital Signs: Last Vital Signs Temp 37.2 C 11/10/17 20:35 Pulse 93 11/10/17 20:35 Resp 14 11/10/17 20:35 BP 112/53 L 11/10/17 20:35 Pulse Ox 96 11/10/17 20:35 Weight: 65.317 kg - OB Specific Contraction Duration (sec): No contractions Contraction Frequency (min): None Contraction Intensity: Irritability Movement: Active Heart Tones: Present Heart Tones per Min: 130 (positive accelerations) Heart Rate (FHR) Variability: Moderate (6-25 bmp) - Exam General: Alert, Oriented HEENT: EOMI Neck: Supple, Trachea Midline Lungs: Clear to Auscultation, Normal Respiratory Effort Cardiovascular: Regular Rate, Regular Rhythm GI/Abdominal Exam: Normal Bowel Sounds, Soft, Guarding, Tender. No: Rigid, Rebound Back Exam: CVA Tenderness (R). No: CVA Tenderness (L) Extremities: Non-Tender, No Pedal Edema Skin: Warm, Dry, Intact - Patient Data Lab Results Last 24 hrs: Laboratory Results - last 24 hr 11/10/17 11/10/17 11/10/17 Range/Units 10:34 10:34 10:34 WBC 11.98 H (3.98-10.04) K/mm3 RBC 3.36 L (3.98-5.22) M/mm3 Hgb 9.6 L (11.2-15.7) gm/L Hct 29.8 L (34.1-44.9) % MCV 88.7 (79.4-94.8) fl MCH 28.6 (25.6-32.2) pg MCHC 32.2 (32.2-35.5) g/dl RDW Std Deviation 41.5 (36.4-46.3) fL Plt Count 339 (182-369) K/mm3 MPV 8.4 L (9.4-12.3) fl Neut % (Auto) 77.5 H (34.0-71.1) % Lymph % (Auto) 11.8 L (19.3-51.7) % [place] % (Auto) 9.5 (4.7-12.5) % Eos % (Auto) 0.6 L (0.7-5.8) Baso % (Auto) 0.2 (0.1-1.2) % Neut # (Auto) 9.29 H (1.56-6.13) K/mm3 Lymph # (Auto) 1.41 (1.18-3.74) K/mm3 [place] # (Auto) 1.14 H (0.24-0.36) K/mm3 Eos # (Auto) 0.07 (0.04-0.36) K/mm3 Baso # (Auto) 0.02 (0.01-0.08) K/mm3 Sodium 136 (136-145) mEq/L Potassium 3.7 (3.5-5.1) mEq/L Chloride 103 (98-107) mEq/L Carbon Dioxide 23 (21-32) mEq/L Anion Gap 13.7 (5-15) BUN 6 L (7-18) mg/dL Creatinine 0.5 L (0.55-1.02) mg/dL Est Cr Clr Drug Dosing 141.95 mL/min Estimated GFR (MDRD) > 60 (>60) mL/min BUN/Creatinine Ratio 12.0 L (14-18) Glucose 88 (74-106) mg/dL Calcium 8.2 L (8.5-10.1) mg/dL Amylase 51 (25-115) U/L Lipase 108 (73-393) U/L Urine Color (Yellow) Urine Appearance (Clear) Urine pH (5.0-8.0) Ur Specific [place] (1.005-1.030) Urine Protein (Negative) Urine Glucose (UA) (Negative) Urine Ketones (Negative) Urine Occult Blood (Negative) Urine Nitrite (Negative) Urine Bilirubin (Negative) Urine Urobilinogen (0.2-1.0) Ur Leukocyte Esterase (Negative) Urine RBC (0-5) /hpf Urine WBC (0-5) /hpf Ur Epithelial Cells (0-5) /hpf Urine Bacteria (FEW) /hpf Urine Mucus (FEW) /hpf 11/10/17 Range/Units 11:15 WBC (3.98-10.04) K/mm3 RBC (3.98-5.22) M/mm3 Hgb (11.2-15.7) gm/L Hct (34.1-44.9) % MCV (79.4-94.8) fl MCH (25.6-32.2) pg MCHC (32.2-35.5) g/dl RDW Std Deviation (36.4-46.3) fL Plt Count (182-369) K/mm3 MPV (9.4-12.3) fl Neut % (Auto) (34.0-71.1) % Lymph % (Auto) (19.3-51.7) % [place] % (Auto) (4.7-12.5) % Eos % (Auto) (0.7-5.8) Baso % (Auto) (0.1-1.2) % Neut # (Auto) (1.56-6.13) K/mm3 Lymph # (Auto) (1.18-3.74) K/mm3 [place] # (Auto) (0.24-0.36) K/mm3 Eos # (Auto) (0.04-0.36) K/mm3 Baso # (Auto) (0.01-0.08) K/mm3 Sodium (136-145) mEq/L Potassium (3.5-5.1) mEq/L Chloride (98-107) mEq/L Carbon Dioxide (21-32) mEq/L Anion Gap (5-15) BUN (7-18) mg/dL Creatinine (0.55-1.02) mg/dL Est Cr Clr Drug Dosing mL/min Estimated GFR (MDRD) (>60) mL/min BUN/Creatinine Ratio (14-18) Glucose (74-106) mg/dL Calcium (8.5-10.1) mg/dL Amylase (25-115) U/L Lipase (73-393) U/L Urine Color Yellow (Yellow) Urine Appearance Clear (Clear) Urine pH 7.0 (5.0-8.0) Ur Specific [place] 1.020 (1.005-1.030) Urine Protein 2+ H (Negative) Urine Glucose (UA) Negative (Negative) Urine Ketones Negative (Negative) Urine Occult Blood 1+ H (Negative) Urine Nitrite Negative (Negative) Urine Bilirubin Negative (Negative) Urine Urobilinogen 0.2 (0.2-1.0) Ur Leukocyte Esterase 3+ H (Negative) Urine RBC 10-20 H (0-5) /hpf Urine WBC Too numerous to cnt H (0-5) /hpf Ur Epithelial Cells 10-20 H (0-5) /hpf Urine Bacteria Many H (FEW) /hpf Urine Mucus Not seen (FEW) /hpf Result Diagrams: 11/10/17 10:34 11/10/17 10:34 Scott Results Last 24 hrs: Laboratory Tests 11/10/17 11/10/17 11/10/17 Range/Units 10:34 10:34 10:34 WBC 11.98 H (3.98-10.04) K/mm3 RBC 3.36 L (3.98-5.22) M/mm3 Hgb 9.6 L (11.2-15.7) gm/L Hct 29.8 L (34.1-44.9) % MCV 88.7 (79.4-94.8) fl MCH 28.6 (25.6-32.2) pg MCHC 32.2 (32.2-35.5) g/dl RDW Std Deviation 41.5 (36.4-46.3) fL Plt Count 339 (182-369) K/mm3 MPV 8.4 L (9.4-12.3) fl Neut % (Auto) 77.5 H (34.0-71.1) % Lymph % (Auto) 11.8 L (19.3-51.7) % [place] % (Auto) 9.5 (4.7-12.5) % Eos % (Auto) 0.6 L (0.7-5.8) Baso % (Auto) 0.2 (0.1-1.2) % Neut # (Auto) 9.29 H (1.56-6.13) K/mm3 Lymph # (Auto) 1.41 (1.18-3.74) K/mm3 [place] # (Auto) 1.14 H (0.24-0.36) K/mm3 Eos # (Auto) 0.07 (0.04-0.36) K/mm3 Baso # (Auto) 0.02 (0.01-0.08) K/mm3 Sodium 136 (136-145) mEq/L Potassium 3.7 (3.5-5.1) mEq/L Chloride 103 (98-107) mEq/L Carbon Dioxide 23 (21-32) mEq/L Anion Gap 13.7 (5-15) BUN 6 L (7-18) mg/dL Creatinine 0.5 L (0.55-1.02) mg/dL Est Cr Clr Drug Dosing 141.95 mL/min Estimated GFR (MDRD) > 60 (>60) mL/min BUN/Creatinine Ratio 12.0 L (14-18) Glucose 88 (74-106) mg/dL Calcium 8.2 L (8.5-10.1) mg/dL Amylase 51 (25-115) U/L Lipase 108 (73-393) U/L Urine Color (Yellow) Urine Appearance (Clear) Urine pH (5.0-8.0) Ur Specific [place] (1.005-1.030) Urine Protein (Negative) Urine Glucose (UA) (Negative) Urine Ketones (Negative) Urine Occult Blood (Negative) Urine Nitrite (Negative) Urine Bilirubin (Negative) Urine Urobilinogen (0.2-1.0) Ur Leukocyte Esterase (Negative) Urine RBC (0-5) /hpf Urine WBC (0-5) /hpf Ur Epithelial Cells (0-5) /hpf Urine Bacteria (FEW) /hpf Urine Mucus (FEW) /hpf 11/10/17 Range/Units 11:15 WBC (3.98-10.04) K/mm3 RBC (3.98-5.22) M/mm3 Hgb (11.2-15.7) gm/L Hct (34.1-44.9) % MCV (79.4-94.8) fl MCH (25.6-32.2) pg MCHC (32.2-35.5) g/dl RDW Std Deviation (36.4-46.3) fL Plt Count (182-369) K/mm3 MPV (9.4-12.3) fl Neut % (Auto) (34.0-71.1) % Lymph % (Auto) (19.3-51.7) % [place] % (Auto) (4.7-12.5) % Eos % (Auto) (0.7-5.8) Baso % (Auto) (0.1-1.2) % Neut # (Auto) (1.56-6.13) K/mm3 Lymph # (Auto) (1.18-3.74) K/mm3 [place] # (Auto) (0.24-0.36) K/mm3 Eos # (Auto) (0.04-0.36) K/mm3 Baso # (Auto) (0.01-0.08) K/mm3 Sodium (136-145) mEq/L Potassium (3.5-5.1) mEq/L Chloride (98-107) mEq/L Carbon Dioxide (21-32) mEq/L Anion Gap (5-15) BUN (7-18) mg/dL Creatinine (0.55-1.02) mg/dL Est Cr Clr Drug Dosing mL/min Estimated GFR (MDRD) (>60) mL/min BUN/Creatinine Ratio (14-18) Glucose (74-106) mg/dL Calcium (8.5-10.1) mg/dL Amylase (25-115) U/L Lipase (73-393) U/L Urine Color Yellow (Yellow) Urine Appearance Clear (Clear) Urine pH 7.0 (5.0-8.0) Ur Specific [place] 1.020 (1.005-1.030) Urine Protein 2+ H (Negative) Urine Glucose (UA) Negative (Negative) Urine Ketones Negative (Negative) Urine Occult Blood 1+ H (Negative) Urine Nitrite Negative (Negative) Urine Bilirubin Negative (Negative) Urine Urobilinogen 0.2 (0.2-1.0) Ur Leukocyte Esterase 3+ H (Negative) Urine RBC 10-20 H (0-5) /hpf Urine WBC Too numerous to cnt H (0-5) /hpf Ur Epithelial Cells 10-20 H (0-5) /hpf Urine Bacteria Many H (FEW) /hpf Urine Mucus Not seen (FEW) /hpf Imaging Impressions Last 24 hrs: 1. Right sided hydronephrosis - Most likely physiologic as a result of 2. Two filling defects within the right kidney - Possible globular debris vs poorly shadowing stones 3. Gallbladder polyp - Likely physiologic - Problem List (1) 28 weeks gestation of SNOMED Code(s): 11661297 ICD Code: Z3A.28 - 28 WEEKS GESTATION OF Status: Acute Current Visit: Yes (2) Pyelonephritis affecting in third trimester SNOMED Code(s): 26090633, 975545346, [id number] ICD Code: O23.03 - INFECTIONS OF KIDNEY IN , THIRD TRIMESTER Status: Acute Current Visit: Yes Problem List Initiated/Reviewed/Updated: Yes Orders Last 24hrs: Active Orders 24 hr Category Date Time Status Admission Status [Patient Status] [ADT] Routine ADT 11/10/17 16:00 Active Patient Status [ADT] Routine ADT 11/10/17 10:17 Active Heart Tones [RC] Q4HR Care 11/10/17 15:17 Active Non Stress Test [RC] PER UNIT ROUTINE Care 11/10/17 10:17 Active May Shower [RC] ASDIRECTED Care 11/10/17 15:17 Active Notify Provider Vital Signs [RC] ASDIRECTED Care 11/10/17 15:18 Active Notify Provider [RC] PRN Care 11/10/17 15:17 Active Peripheral IV Care [RC] Q2HR Care 11/10/17 15:19 Active Up ad Jeanne [RC] ASDIRECTED Care 11/10/17 15:17 Active Vital Signs [RC] Q4HR Care 11/10/17 10:17 Active Regular Diet [DIET] Diet 11/10/17 Lunch Active Acetaminophen/oxyCODONE [Percocet 325-5 MG] Med 11/10/17 15:17 Active 1 tab PO Q6H PRN Acetaminophen/oxyCODONE [Percocet 325-5 MG] Med 11/10/17 15:17 Active 2 tab PO Q6H PRN Docusate Sodium [Colace] Med 11/10/17 17:00 Active 100 mg PO Q12H HYDROmorphone [Dilaudid] Med 11/10/17 15:21 Active 1 mg IVPUSH Q2H PRN Magnesium Hydroxide [Milk of Magnesia] Med 11/10/17 15:30 Active 30 ml PO DAILY Ondansetron [Zofran ODT] Med 11/10/17 15:17 Active 4 mg PO Q4H PRN Ondansetron [Zofran] Med 11/10/17 18:20 Active 4 mg IVPUSH Q8H PRN Vit with Ca/FA/Iron [ Plus Iron] Med 11/11/17 09:00 Active 1 each PO DAILY Sodium Chloride 0.9% [Normal Saline] 1,000 ml Med 11/10/17 15:30 Active IV ASDIRECTED Sodium Chloride 0.9% [Saline Flush] Med 11/10/17 15:17 Active 10 ml FLUSH ASDIRECTED PRN cefTRIAXone [Rocephin] 2 gm Med 11/10/17 15:30 Active Sodium Chloride 0.9% [Normal Saline] 100 ml IV Q24H Peripheral IV Insertion Adult [OM.PC] Routine Oth 11/10/17 15:17 Ordered Resuscitation Status Routine Resus Stat 11/10/17 10:17 Ordered Medication Orders Docusate Sodium (Colace) 100 mg PO Q12H [facility] Last Admin: 11/10/17 16:32 Dose: 100 mg Hydromorphone HCl (Dilaudid) 1 mg IVPUSH Q2H PRN PRN Reason: Pain (severe 7-10) Ceftriaxone Sodium 2 gm/ (Sodium Chloride) 100 mls @ 200 mls/hr IV Q24H [facility] Last Admin: 11/10/17 16:31 Dose: 200 mls/hr Sodium Chloride (Normal Saline) 1,000 mls @ 125 mls/hr IV ASDIRECTED [facility] Last Admin: 11/10/17 20:33 Dose: 125 mls/hr Magnesium Hydroxide (Milk Of Magnesia) 30 ml PO DAILY [facility] Last Admin: 11/10/17 16:32 Dose: 30 ml Ondansetron HCl (Zofran Odt) 4 mg PO Q4H PRN PRN Reason: Nausea/Vomiting Ondansetron HCl (Zofran) 4 mg IVPUSH Q8H PRN PRN Reason: Nausea Oxycodone/Acetaminophen (Percocet 325-5 Mg) 1 tab PO Q6H PRN PRN Reason: Pain (moderate 4-6) Oxycodone/Acetaminophen (Percocet 325-5 Mg) 2 tab PO Q6H PRN PRN Reason: Pain (severe 7-10) Last Admin: 11/10/17 19:45 Dose: 2 tab Prenat Multivit/Julian/Iron/Folic Ac ( Plus Iron) 1 each PO DAILY ELLIOT Sodium Chloride (Saline Flush) 10 ml FLUSH ASDIRECTED PRN PRN Reason: Keep Vein Open Assessment/Plan Comment:: Ama Suárez is a 22 year old at 28 weeks 0 days by 6 week U/ S who likely has pyelonephritis in 1. Abdominal pain in - Patient without any contractions or pelvic pressure. Urinalysis showed leukocyte esterase 3+, blood 1+, WBCs too many to count, negative nitrites. Patient with a history of UTIs in as well as asymptomatic bacteriuria requiring multiple courses of antibiotics. She was started on Macrobid nightly for prophylaxis. This pain may also represent severe constipation vs possible appendicitis. Less likely to be constipation due to severity of pain and also with positive right sided CVA tenderness. Less likely to be appendicitis due to only mild leukocytosis. Other causes of abdominal pain less likely secondary to other normal lab values. Will keep patient for observation secondary to suspected pyelonephritis with significant pain Patient to have IV placed and receive 1 L bolus of NS then to have NS at 125 ml/ hr overnight. Start on ceftriaxone 2 g IV Q 24 hours Routine vitals with temp heart tones every shift with plan for NST prior to discharge Regular diet vitamin daily Possible discharge tomorrow after second dose of ceftriaxone and if pain improved with afebrile status. Will continue to monitor closely Terry Coker MD 10:46 PM 11/10/2017
[2017-11-11] MEDS: Acetaminophen/oxyCODONE 325-5 MG Tab PO PRN ×2 (01:57→13:35)
[2017-11-11] MEDS: Docusate Sodium 100 MG Cap PO SCH ×2 (04:26→18:07)
[2017-11-11] MEDS: Sodium Chloride 0.9% 1,000 ML IV SCH ×2 (04:26→13:40)
[2017-11-11] MEDS: Magnesium Hydroxide 400 MG/5 ML Susp 30 ML Cup PO SCH (08:44)
[2017-11-11] MEDS: Prenatal Multivitamin with Calcium/Folic Acid/Iron Tab PO SCH (08:44)
[2017-11-11] MEDS: Ondansetron 4 MG/2 ML SDV IVPUSH PRN (13:45)
--- NOTE | 2017-11-11 14:42 | PCM.SN ---
- Free Text/Narrative Note: S: Patient reports that she is feeling better this morning. Reports that her right-sided back pain has continued but is more tolerable than it was yesterday. Reports the pain at this time is 8-9/10. She has been using Percocet for pain control throughout the night. Last dose was at 3 AM. Reports that she's been continuing to have significant nausea with emesis with dinner last evening. Has been able to keep liquids down. Minimal appetite at this time. Has not been ambulating due to her back pain. Reports that she is continuing to void without difficulty and is having increased amounts of urine with IV fluids going. Denies any leaking of fluid or vaginal bleeding. Denies any abdominal pain or cramping. Denies any contractions. Reports good movement. O: Vital Signs - 24 hr 11/10/17 11/11/17 20:35 04:28 Temperature 37.2 C 36.8 C Pulse, 93 80 Peripheral Respiratory 14 14 Rate Blood Pressure 112/53 L 103/50 L O2 Sat by Pulse 96 97 Oximetry Physical exam Gen.: Minimal distress, alert and oriented Lungs: Clear to auscultation bilaterally Heart: Regular rate and rhythm Abdomen: Mild tenderness in right lower quadrant without guarding or rebound, no distention, positive bowel sounds, gravid, moderate right-sided CVA tenderness but improved from initial evaluation Extremities: Trace edema in bilateral lower extremities to mid shins Laboratory Tests 11/10/17 11/10/17 11/10/17 Range/Units 10:34 10:34 10:34 WBC 11.98 H (3.98-10.04) K/mm3 RBC 3.36 L (3.98-5.22) M/mm3 Hgb 9.6 L (11.2-15.7) gm/L Hct 29.8 L (34.1-44.9) % MCV 88.7 (79.4-94.8) fl MCH 28.6 (25.6-32.2) pg MCHC 32.2 (32.2-35.5) g/dl RDW Std Deviation 41.5 (36.4-46.3) fL Plt Count 339 (182-369) K/mm3 MPV 8.4 L (9.4-12.3) fl Neut % (Auto) 77.5 H (34.0-71.1) % Lymph % (Auto) 11.8 L (19.3-51.7) % [place] % (Auto) 9.5 (4.7-12.5) % Eos % (Auto) 0.6 L (0.7-5.8) Baso % (Auto) 0.2 (0.1-1.2) % Neut # (Auto) 9.29 H (1.56-6.13) K/mm3 Lymph # (Auto) 1.41 (1.18-3.74) K/mm3 [place] # (Auto) 1.14 H (0.24-0.36) K/mm3 Eos # (Auto) 0.07 (0.04-0.36) K/mm3 Baso # (Auto) 0.02 (0.01-0.08) K/mm3 Sodium 136 (136-145) mEq/L Potassium 3.7 (3.5-5.1) mEq/L Chloride 103 (98-107) mEq/L Carbon Dioxide 23 (21-32) mEq/L Anion Gap 13.7 (5-15) BUN 6 L (7-18) mg/dL Creatinine 0.5 L (0.55-1.02) mg/dL Est Cr Clr Drug Dosing 141.95 mL/min Estimated GFR (MDRD) > 60 (>60) mL/min BUN/Creatinine Ratio 12.0 L (14-18) Glucose 88 (74-106) mg/dL Calcium 8.2 L (8.5-10.1) mg/dL Amylase 51 (25-115) U/L Lipase 108 (73-393) U/L Urine Color (Yellow) Urine Appearance (Clear) Urine pH (5.0-8.0) Ur Specific [place] (1.005-1.030) Urine Protein (Negative) Urine Glucose (UA) (Negative) Urine Ketones (Negative) Urine Occult Blood (Negative) Urine Nitrite (Negative) Urine Bilirubin (Negative) Urine Urobilinogen (0.2-1.0) Ur Leukocyte Esterase (Negative) Urine RBC (0-5) /hpf Urine WBC (0-5) /hpf Ur Epithelial Cells (0-5) /hpf Urine Bacteria (FEW) /hpf Urine Mucus (FEW) /hpf 11/10/17 Range/Units 11:15 WBC (3.98-10.04) K/mm3 RBC (3.98-5.22) M/mm3 Hgb (11.2-15.7) gm/L Hct (34.1-44.9) % MCV (79.4-94.8) fl MCH (25.6-32.2) pg MCHC (32.2-35.5) g/dl RDW Std Deviation (36.4-46.3) fL Plt Count (182-369) K/mm3 MPV (9.4-12.3) fl Neut % (Auto) (34.0-71.1) % Lymph % (Auto) (19.3-51.7) % [place] % (Auto) (4.7-12.5) % Eos % (Auto) (0.7-5.8) Baso % (Auto) (0.1-1.2) % Neut # (Auto) (1.56-6.13) K/mm3 Lymph # (Auto) (1.18-3.74) K/mm3 [place] # (Auto) (0.24-0.36) K/mm3 Eos # (Auto) (0.04-0.36) K/mm3 Baso # (Auto) (0.01-0.08) K/mm3 Sodium (136-145) mEq/L Potassium (3.5-5.1) mEq/L Chloride (98-107) mEq/L Carbon Dioxide (21-32) mEq/L Anion Gap (5-15) BUN (7-18) mg/dL Creatinine (0.55-1.02) mg/dL Est Cr Clr Drug Dosing mL/min Estimated GFR (MDRD) (>60) mL/min BUN/Creatinine Ratio (14-18) Glucose (74-106) mg/dL Calcium (8.5-10.1) mg/dL Amylase (25-115) U/L Lipase (73-393) U/L Urine Color Yellow (Yellow) Urine Appearance Clear (Clear) Urine pH 7.0 (5.0-8.0) Ur Specific [place] 1.020 (1.005-1.030) Urine Protein 2+ H (Negative) Urine Glucose (UA) Negative (Negative) Urine Ketones Negative (Negative) Urine Occult Blood 1+ H (Negative) Urine Nitrite Negative (Negative) Urine Bilirubin Negative (Negative) Urine Urobilinogen 0.2 (0.2-1.0) Ur Leukocyte Esterase 3+ H (Negative) Urine RBC 10-20 H (0-5) /hpf Urine WBC Too numerous to cnt H (0-5) /hpf Ur Epithelial Cells 10-20 H (0-5) /hpf Urine Bacteria Many H (FEW) /hpf Urine Mucus Not seen (FEW) /hpf A/P 22 year old at 28 weeks 1 day with suspected right-sided pyelonephritis * Patient improving at this time but continues to have moderate right-sided CVA tenderness * Continue IV fluids to ensure good hydration with decreased oral intake * Continue Rocephin 2 g IV every 24 hours for treatment of suspected pyelonephritis * Continue with Percocet for pain control as needed, patient may use IV pain medications if oral medications not controlling pain well * Possible discharge this afternoon if patient improves and is able tolerate a regular diet, pain is minimal and is able to be controlled with oral medications , and patient remains afebrile. Possible the patient may need to remain overnight for an additional day of monitoring with IV antibiotics. Terry Coker M.D. 2:42 PM 11/11/2017
[2017-11-11] MEDS: cefTRIAXone 2 GM in Sodium Chloride 0.9% 100 ML IV SCH (15:37)
[2017-11-12] MEDS: Docusate Sodium 100 MG Cap PO SCH (04:06)
[2017-11-12] MEDS: Acetaminophen/oxyCODONE 325-5 MG Tab PO PRN (04:06)
--- NOTE | 2017-11-12 08:15 | PCM.SN ---
- Free Text/Narrative Note: S: Patient reports that she is feeling much better this morning. Reports that her right-sided back pain has improved from yesterday. She has been using Percocet for pain control throughout the night. Last dose was at 3 AM but only required 1 Percocet with that dose. Reports that she's been continuing to have nausea but was able to tolerate dinner last evening. Has increased ambulation now with better pain control. Reports that she is continuing to void without difficulty. Denies any leaking of fluid or vaginal bleeding. Denies any abdominal pain or cramping. Denies any contractions. Reports good movement. Denies any fevers or chills. O: Vital Signs - 24 hr 11/11/17 11/11/17 11/11/17 08:42 13:42 17:00 Temperature 36.9 C Temperature [ 37.1 C Temporal] Pulse, 86 83 Peripheral Pulse, 79 Peripheral [ Brachial] Respiratory 14 15 15 Rate Blood Pressure 108/61 106/68 Blood Pressure 118/64 [Upper Arm] O2 Sat by Pulse 98 98 98 Oximetry 11/11/17 11/11/17 11/12/17 18:06 20:11 00:32 Temperature 36.9 C 37.1 C Temperature [ Temporal] Pulse, 97 85 95 Peripheral Pulse, Peripheral [ Brachial] Respiratory 16 16 Rate Blood Pressure 117/64 103/43 L Blood Pressure [Upper Arm] O2 Sat by Pulse 99 98 98 Oximetry 11/12/17 04:04 Temperature 36.9 C Temperature [ Temporal] Pulse, 80 Peripheral Pulse, Peripheral [ Brachial] Respiratory 15 Rate Blood Pressure 113/54 L Blood Pressure [Upper Arm] O2 Sat by Pulse 97 Oximetry Physical exam Gen.: No acute distress, alert and oriented Lungs: Clear to auscultation bilaterally Heart: Regular rate and rhythm Abdomen: Nontender without guarding or rebound, no distention, positive bowel sounds, gravid, minimal right-sided CVA tenderness Extremities: Trace edema in bilateral lower extremities to mid shins A/P 22 year old at 28 weeks 2 days with suspected right-sided pyelonephritis * Patient improving from previous day at this time with minimal right-sided CVA tenderness * Continue IV fluids to ensure good hydration * Continue Rocephin 2 g IV every 24 hours for treatment of suspected pyelonephritis * Continue with Percocet for pain control as needed * Anticipate discharge this afternoon after next dose of Rocephin and is able tolerate a regular diet, pain is minimal and is able to be controlled with oral medications, and patient remains afebrile. Terry Coker M.D. 8:12 AM 11/12/2017
--- NOTE | 2017-11-12 08:29 | PCM.DCSUM1 ---
Discharge Summary - Hospital Course Free Text/Narrative:: Ama Suárez is a 22 year old at 28 weeks 0 days who presented for evaluation of abdominal pain. She reports that the pain is located in her lower stomach more on the right side of her abdomen and radiates to her back. She reports that the pain is constant and has not been made worse or better with any interventions. She rates the pain at 10/10. She does not recall any event that lead to the pain starting. She denies anything similar in the past. She was previously diagnosed with recurrent UTIs in and was on Macrobid 100 mg PO nightly for UTI prophylaxis. She reports that she has been taking the Macrobid nightly as prescribed. She denies any vaginal bleeding or leakage of fluid. She reports good movement. She denies any uterine cramping or contractions. HPI Initial Comments: Ama Suárez is a 22 year old at 28 weeks 0 days who presented for evaluation of abdominal pain. She reports that the pain is located in her lower stomach more on the right side of her abdomen and radiates to her back. She reports that the pain is constant and has not been made worse or better with any interventions. She rates the pain at 10/10. She does not recall any event that lead to the pain starting. She denies anything similar in the past. She was previously diagnosed with recurrent UTIs in and was on Macrobid 100 mg PO nightly for UTI prophylaxis. She reports that she has been taking the Macrobid nightly as prescribed. She denies any vaginal bleeding or leakage of fluid. She reports good movement. She denies any uterine cramping or contractions. Brief History: Ama Suárez is a 22 year old at 28 weeks 0 days who presented for evaluation of abdominal pain. She reports that the pain is located in her lower stomach more on the right side of her abdomen and radiates to her back. She reports that the pain is constant and has not been made worse or better with any interventions. She rates the pain at 10/10. She does not recall any event that lead to the pain starting. She denies anything similar in the past. She was previously diagnosed with recurrent UTIs in and was on Macrobid 100 mg PO nightly for UTI prophylaxis. She reports that she has been taking the Macrobid nightly as prescribed. She denies any vaginal bleeding or leakage of fluid. She reports good movement. She denies any uterine cramping or contractions. - Discharge Data Discharge Date: 11/12/17 Discharge Disposition: Home, Self-Care 01 Condition: Good - Discharge Diagnosis/Problem(s) (1) 28 weeks gestation of SNOMED Code(s): 42250521 ICD Code: Z3A.28 - 28 WEEKS GESTATION OF Status: Acute (2) Pyelonephritis affecting in third trimester SNOMED Code(s): 30294591, 157763316, 808094517 ICD Code: O23.03 - INFECTIONS OF KIDNEY IN , THIRD TRIMESTER Status: Acute - Patient Summary/Data Complications: None Consults: None Hospital Course: mAa Suárez was admitted for suspected right sided pyelonephritis based on patient's history of asymptomatic bacteriuria, urinary tract infections in and urinalysis. She had initially presented with abdominal pain and had an abdominal ultrasound that did not show any evidence of stones or other pathologies. She did have some mild right-sided hydronephrosis that was suspected to be secondary to changes. She was started on Rocephin 2 g IV every 24 hours after initial diagnosis of suspected palatal nephritis. She was given normal saline 1 L fluid bolus on initial admission. She was then continued on IV fluids normal saline at 125 mL/ h. She had significant nausea with vomiting on hospital day #1 and was treated with IV antiemetics. On hospital day #2 her right-sided CVA tenderness was improving and she was able to tolerate small amounts of regular diet in the evening of hospital day #2. She continued to have moderate amount of pain on the right side and was kept for an additional day with IV antibiotics. On hospital day #3 she continued to do well throughout the day but did have 1 episode of emesis in early afternoon. Her pain was resolved in the morning of hospital day #3. She received a third dose of Rocephin in the afternoon of hospital day #3 and was discharged home after tolerating this infusion. She'll be discharged home on Keflex 500 mg 4 times daily for 2 weeks and then she'll be transitioned to nightly prophylaxis with Keflex 500 mg. She'll follow-up in the clinic in 2 weeks or earlier as needed. - Patient Instructions Diet: Regular Diet as Tolerated Activity: As Tolerated Driving: Do Not Drive (while on narcotic medications) Showering/Bathing: May Shower Notify Provider of: Fever, Increased Pain, Swelling and Redness, Nausea and/or Vomiting - Discharge Plan Prescriptions/Med Rec: Acetaminophen/oxyCODONE [Percocet 325-5 MG] 1 - 2 tab PO Q6H PRN #16 tablet PRN Reason: Pain Cephalexin [Keflex] 500 mg PO Q6H 14 Days #56 capsule Cephalexin [Keflex] 500 mg PO BEDTIME #60 capsule Home Medications: Home Meds Albuterol Inhaler. 2 puff INH DAILY PRN 04/06/17 [History] Ondansetron [Zofran ODT] 4 mg SL Q6H PRN 10/10/17 [History] Vits #93/Iron Fum/FA [ Formula Tablet] 1 tab PO DAILY 10/10/17 [History] Acetaminophen/oxyCODONE [Percocet 325-5 MG] 1 - 2 tab PO Q6H PRN #16 tablet [Rx] Cephalexin [Keflex] 500 mg PO BEDTIME #60 capsule 11/12/17 [Rx] Cephalexin [Keflex] 500 mg PO Q6H 14 Days #56 capsule 11/12/17 [Rx] Docusate Sodium [Colace] 100 mg PO Q12H cap 11/12/17 [Rx] Patient Handouts: Pyelonephritis, Adult, Pyelonephritis, Adult, [id number], Urinary Tract Infection, Adult Referrals: Terry Coker MD [Primary Care Provider] - 11/30/17 (Ask about having a TDaP vaccine at your next appointment.) - Discharge Summary/Plan Comment DC Time >30 min.: No - Patient Data Vitals - Most Recent: Last Vital Signs Temp 36.9 C 11/12/17 04:04 Pulse 80 11/12/17 04:04 Resp 15 11/12/17 04:04 BP 113/54 L 11/12/17 04:04 Pulse Ox 97 11/12/17 04:04 Weight - Most Recent: 65.317 kg I&O - Last 24 hours: Intake & Output 11/11/17 11/12/17 11/12/17 22:59 06:59 14:59 Intake Total 520 1000 Balance 520 1000 Med Orders - Current: Current Medications Docusate Sodium (Colace) 100 mg PO Q12H [facility] Last Admin: 11/12/17 04:06 Dose: 100 mg Hydromorphone HCl (Dilaudid) 1 mg IVPUSH Q2H PRN PRN Reason: Pain (severe 7-10) Ceftriaxone Sodium 2 gm/ (Sodium Chloride) 100 mls @ 200 mls/hr IV Q24H [facility] Last Admin: 11/11/17 15:37 Dose: 200 mls/hr Sodium Chloride (Normal Saline) 1,000 mls @ 125 mls/hr IV ASDIRECTED [facility] Last Admin: 11/11/17 13:40 Dose: 125 mls/hr Magnesium Hydroxide (Milk Of Magnesia) 30 ml PO DAILY [facility] Last Admin: 11/11/17 08:44 Dose: 30 ml Ondansetron HCl (Zofran Odt) 4 mg PO Q4H PRN PRN Reason: Nausea/Vomiting Ondansetron HCl (Zofran) 4 mg IVPUSH Q8H PRN PRN Reason: Nausea Last Admin: 11/11/17 13:45 Dose: 4 mg Oxycodone/Acetaminophen (Percocet 325-5 Mg) 1 tab PO Q6H PRN PRN Reason: Pain (moderate 4-6) Last Admin: 11/12/17 04:06 Dose: 1 tab Oxycodone/Acetaminophen (Percocet 325-5 Mg) 2 tab PO Q6H PRN PRN Reason: Pain (severe 7-10) Last Admin: 11/11/17 01:57 Dose: 2 tab Prenat Multivit/Stand In/Iron/Folic Ac ( Plus Iron) 1 each PO DAILY [facility] Last Admin: 11/11/17 08:44 Dose: 1 each Sodium Chloride (Saline Flush) 10 ml FLUSH ASDIRECTED PRN PRN Reason: Keep Vein Open Discontinued Medications Ceftriaxone Sodium 2 gm/ (Lidocaine HCl 2.1 ml) 0 gm IM ONETIME ONE Stop: 11/10/17 12:32 Last Admin: 11/10/17 22:26 Dose: Not Given Lactated Ringer's (Ringers, Lactated) 1,000 mls @ 999 mls/hr IV .BOLUS ONE Stop: 11/10/17 16:17 Last Admin: 11/10/17 22:25 Dose: Not Given Lactated Ringer's (Ringers, Lactated) 1,000 mls @ 125 mls/hr IV ASDIRECTED [facility] Sodium Chloride (Normal Saline) 1,000 mls @ 999 mls/hr IV ONETIME ONE Stop: 11/10/17 16:24 Last Admin: 11/10/17 19:46 Dose: 999 mls/hr Oxycodone/Acetaminophen (Percocet 325-5 Mg) 2 tab PO ONETIME ONE Stop: 11/10/17 12:27 Last Admin: 11/10/17 12:52 Dose: 2 tab *Q Meaningful Use (DIS) - VTE *Q VTE Criteria *Q: - Stroke *Q Stroke Criteria *Q: - AMI *Q AMI Criteria *Q:
[2017-11-12] MEDS: Sodium Chloride 0.9% 1,000 ML IV SCH (12:50)
[2017-11-12] MEDS: Prenatal Multivitamin with Calcium/Folic Acid/Iron Tab PO SCH (12:52)
[2017-11-12] MEDS: Magnesium Hydroxide 400 MG/5 ML Susp 30 ML Cup PO SCH (12:52)
[2017-11-12] MEDS: cefTRIAXone 2 GM in Sodium Chloride 0.9% 100 ML IV SCH (15:07)
[2017-11-12] MEDS: Ondansetron 4 MG/2 ML SDV IVPUSH PRN (15:12)
[2017-11-12 15:28] VITALS: BP 92/51
== END 2017-11-12 18:30 | disposition home or self-care (01) | DRG 781 ==
LOC: JD.OB 09:11 → JD.OBCHECK 09:11 → JD.OB 16:00 → JD.OBCHECK 16:00 → JD.OB 16:05 → OBSVTOIN 11-11 17:38
PROVIDERS: ADMIT Obstetrics & Gynecology; ATTEND Obstetrics & Gynecology
DX: O23.03 Infections of kidney in pregnancy, third trimester (principal); Z3A.28 28 weeks gestation of pregnancy; Z87.440 Personal history of urinary (tract) infections; Z87.891 Personal history of nicotine dependence
CPT/HCPCS: 36415; 76700; 76700-26; 80048; 81001; 82150; 83690; 85025; A9270-GY; J0696; J2405; J7030; J7040

== ENCOUNTER 2018-01-29 04:37 | Inpatient (IN) | payer MEDICAID ==
[2018-01-29] MEDS ORDERED: ePHEDrine 50 MG/ML SDV IVPUSH PRN (04:55)
[2018-01-29] MEDS ORDERED: Ondansetron 4 MG/2 ML SDV IVPUSH PRN (04:55)
[2018-01-29] MEDS ORDERED: diphenhydrAMINE 50 MG/ML SDV IVPUSH PRN (04:55)
[2018-01-29] MEDS ORDERED: Sodium Chloride 0.9% 10 ML Syringe FLUSH PRN ×2 (05:15→08:08)
[2018-01-29] MEDS ORDERED: Lidocaine 1% 50 ML MDV INJECT PRN (05:15)
[2018-01-29] MEDS ORDERED: Oxytocin/Lactated Ringers 10 UNIT/1,000 ML BAG IV SCH ×3 (05:15→15:35)
[2018-01-29] MEDS ORDERED: Lactated Ringers 1,000 ML ONE (05:24)
[2018-01-29] MEDS: Lactated Ringers 1,000 ML IV SCH ×5 (05:35→11:42)
[2018-01-29] MEDS: Bupivacaine/fentaNYL/NS 100 ML Bag EPIDUR SCH ×2 (06:22→13:05)
[2018-01-29] MEDS: fentaNYL 100 MCG/2 ML SDV EPIDUR PRN ×2 (06:22→09:20)
--- NOTE | 2018-01-29 06:33 | PCM.PREANE ---
Preanesthetic Assessment - Anesthesia/Transfusion/Family Hx Anesthesia History: No Prior Anesthesia Family History of Anesthesia Reaction: No Transfusion History: No Prior Transfusion(s) - Review of Systems General: No Symptoms Pulmonary: No Symptoms Cardiovascular: No Symptoms, Other (Asthma. Inhaler used when she gets a cold.) Gastrointestinal: No Symptoms Neurological: No Symptoms Other: Reports: None - Physical Assessment Pulse: 88 O2 Sat by Pulse Oximetry: 99 Respiratory Rate: 20 Blood Pressure: 142/78 Height: 1.57 m Weight: 69.853 kg ASA Class: 2 Mental Status: Alert & Oriented x3 Airway Class: Mallampati = 1 Dentition: Reports: Normal Dentition Thyro-Mental Finger Breadths: 3 Mouth Opening Finger Breadths: 3 ROM/Head Extension: Full Lungs: Clear to Auscultation, Normal Respiratory Effort Cardiovascular: Regular Rate, Regular Rhythm - Lab Values: Laboratory Last Values WBC 12.79 K/mm3 (3.98-10.04) H 01/29/18 05:25 RBC 3.97 M/mm3 (3.98-5.22) L 01/29/18 05:25 Hgb 9.4 gm/L (11.2-15.7) L 01/29/18 05:25 Hct 30.3 % (34.1-44.9) L 01/29/18 05:25 MCV 76.3 fl (79.4-94.8) L 01/29/18 05:25 MCH 23.7 pg (25.6-32.2) L 01/29/18 05:25 MCHC 31.0 g/dl (32.2-35.5) L 01/29/18 05:25 RDW Std Deviation 43.2 fL (36.4-46.3) 01/29/18 05:25 Plt Count 421 K/mm3 (182-369) H 01/29/18 05:25 MPV 8.8 fl (9.4-12.3) L 01/29/18 05:25 Membrane Rupture Positive H 01/29/18 05:10 - Allergies Allergies/Adverse Reactions: Allergies Allergy/AdvReac Type Severity Reaction Status Date / Time No Known Allergies Allergy Verified 10/10/17 23:26 - Acknowledgements Anesthesia Type Planned: Epidural Pt an Appropriate Candidate for the Planned Anesthesia: Yes Alternatives and Risks of Anesthesia Discussed w Pt/Guardian: Yes Pt/Guardian Understands and Agrees with Anesthesia Plan: Yes PreAnesthesia Questionnaire - Past Health History Medical/Surgical History: Denies Medical/Surgical History Respiratory History: Reports: Asthma Genitourinary History: Reports: Pyelonephritis, STD, UTI, 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: Psychiatric History: Reports: Depression, Suicide Attempt, Suicidal Ideation, Other (See Below) Other Psychiatric History: attempt 2011, 2014, pt denies current depression Hematologic History: Reports: Anemia - Past Surgical History Female Surgical History: Reports: None - HOME MEDS Home Medications: Home Meds Ondansetron [Zofran ODT] 4 mg SL Q6H PRN 10/10/17 [History] Vits #93/Iron Fum/FA [ Formula Tablet] 1 tab PO DAILY 10/10/17 [History] Cephalexin [Keflex] 500 mg PO BEDTIME #60 capsule 11/12/17 [Rx] Docusate Sodium [Colace] 100 mg PO Q12H cap 11/12/17 [Rx] Acetaminophen/oxyCODONE [Percocet 325-5 MG] 1 - 2 tab PO Q6HR PRN 12/03/17 [ History] Cephalexin [Keflex] 500 mg PO Q6H 14 Days #56 capsule 12/03/17 [Rx] - CURRENT (IN HOUSE) MEDS Current Meds: Current Medications Diphenhydramine HCl (Benadryl) 25 mg IVPUSH Q6H PRN PRN Reason: Pruritis Ephedrine Sulfate (Ephedrine Sulfate) 5 mg IVPUSH ASDIRECTED PRN PRN Reason: Hypotension Fentanyl (Sublimaze) 100 mcg EPIDUR ONETIME PRN PRN Reason: Pain Last Admin: 01/29/18 06:22 Dose: 100 mcg Fentanyl/Bupivacaine HCl (Fentanyl/Bupivacaine/Ns 2 Mcg-0.125% 100 Ml) 100 ml EPIDUR ASDIRECTED [facility] Last Admin: 01/29/18 06:22 Dose: 100 ml Lactated Ringer's (Ringers, Lactated) 1,000 mls @ 100 mls/hr IV ASDIRECTED [facility] Last Admin: 01/29/18 06:25 Dose: 999 mls/hr Oxytocin/Lactated Ringer's (Pitocin In Lr 10 Units/1,000 Ml) 10 unit in 1,000 mls @ 500 mls/hr IV .CONTINUOUS ELLIOT Lidocaine HCl (Xylocaine 1%) 50 ml INJECT ONETIME PRN PRN Reason: Breakthrough Pain Ondansetron HCl (Zofran) 4 mg IVPUSH ONETIME PRN PRN Reason: Nausea/Vomiting Sodium Chloride (Saline Flush) 10 ml FLUSH ASDIRECTED PRN PRN Reason: Keep Vein Open Discontinued Medications Lactated Ringer's (Ringers, Lactated) Confirm Administered Dose 1,000 mls @ as directed .ROUTE .K-MED ONE Stop: 01/29/18 05:25
[2018-01-29] MEDS ORDERED: Lactated Ringers 1,000 ML IV SCH (08:15)
--- NOTE | 2018-01-29 08:32 | PCM.LDHP ---
L&D History of Present Illness - General Date of Service: 01/29/18 Admit Problem/Dx: Patient Status Order with Admit Dx/Problem 01/29/18 05:15 Patient Status [ADT] Routine Admission Diagnosis/Problem Admission Diagnosis/Problem with spontaneous rupture of membranes 01/29/18 08:23 Source of Information: Patient History Limitations: Reports: No Limitations - History of Present Illness Introduction:: Ama Suárez is a 22 year old at 39 weeks 3 days by 6 week ultrasound. She presents today complaining of contractions that started at approximately 4 AM. She reports the contractions have been about 2 minutes apart. They were intense enough that they woke her up from sleep. She reports that they are more intense than previous contractions for labor evaluations. Reports the contractions are in 8-9/10. She reports she has been having continuous small amount of leaking of fluid with some light spotting. She reports good movement. Timing/Duration: Reports: sudden onset (At approximately 4 AM), intermittent ( Every 2-3 minutes) Location, : Reports: Abdomen, Lower back, Pelvic Quality: Reports: Pressure, Throbbing Severity: Severe Pain Score: 9 Improves with: Reports: None Worsens with: Reports: None Associated Symptoms: Reports: vaginal fluid, mild amount. Denies: vaginal bleeding Present Illness Comments:: Ama Suárez is a 22 year old at 39 weeks 3 days by 6 week ultrasound. She has had routine care with Dr. Coker starting at 6 weeks gestational age. Her initial labs showed be positive blood type with negative antibody screen. Her hematocrit was 37.7 and hemoglobin of 12.2 with platelets of 400 on 06/29/2017. She is rubella immune. She had RPR nonreactive, hepatitis B surface antigen negative and HIV negative. Her gonorrhea and chlamydia tests were negative on 06/09/2017. Her initial urine culture was positive for Escherichia coli and she was treated for this at that time. She had a normal anatomy ultrasound on 09/18/2017. Her 1 hour glucose test was 109. Her hematocrit was 30.3 and hemoglobin of 9.9 on 10/16/2017. Her platelets were 383. She had a positive chlamydia test on 08/03/2017 and was treated. She had a negative gonorrhea and chlamydia swab on her visit at 2017. Patient was diagnosed with pyelonephritis on 11/11/2017 and was treated with IV antibiotics in the hospital. She was started on Keflex 500 mg nightly for antibiotic prophylaxis at that time. She continued to use Keflex for antibiotic prophylaxis route through manner the . She had a negative GBS screen on 12/28/2017. Her has been complicated by asthma, anemia, recurrent urinary tract infection and pyelonephritis, nausea and vomiting in early , and positive chlamydia with negative test of cure. - Related Data Allergies/Adverse Reactions: Allergies Allergy/AdvReac Type Severity Reaction Status Date / Time No Known Allergies Allergy Verified 10/10/17 23:26 Home Medications: Home Meds Ondansetron [Zofran ODT] 4 mg SL Q6H PRN 10/10/17 [History] Vits #93/Iron Fum/FA [ Formula Tablet] 1 tab PO DAILY 10/10/17 [History] Cephalexin [Keflex] 500 mg PO BEDTIME #60 capsule 11/12/17 [Rx] Docusate Sodium [Colace] 100 mg PO Q12H cap 11/12/17 [Rx] Acetaminophen/oxyCODONE [Percocet 325-5 MG] 1 - 2 tab PO Q6HR PRN 12/03/17 [ History] Cephalexin [Keflex] 500 mg PO Q6H 14 Days #56 capsule 12/03/17 [Rx] Past Medical History - Past Health History Medical/Surgical History: Denies Medical/Surgical History Respiratory History: Reports: Asthma Genitourinary History: Reports: Pyelonephritis, STD, UTI, Recurrent RECEPTION[employer] 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: 0 Psychiatric History: Reports: Depression, Suicide Attempt, Suicidal Ideation, Other (See Below) Other Psychiatric History: attempt 2011, 2015, pt denies current depression Hematologic History: Reports: Anemia - Past Surgical History Female Surgical History: Reports: None Social & Family History - Family History Family Medical History: Noncontributory - Tobacco Use Smoking Status *Q: Never Smoker - Tobacco Core Measures Tobacco Use/Smoking Within Last 30 Days: No - Caffeine Use Caffeine Use: Reports: None - Alcohol Use Alcohol Use History: No - Living Situation & Occupation Living situation: Reports: Single Occupation: Employed H&P Review of Systems - Review of Systems: Review Of Systems: See Below General: Denies: Fever, Chills, Malaise HEENT: Denies: Post Nasal Drip, Sinus Congestion, Sore Throat, Visual Changes Pulmonary: Denies: Shortness of Breath, Wheezing, Cough Cardiovascular: Denies: Chest Pain, Palpitations Gastrointestinal: Reports: Nausea. Denies: Abdominal Pain, Constipation, Diarrhea, Vomiting Genitourinary: Denies: Dysuria, Frequency, Burning, Pain Musculoskeletal: Reports: Back Pain (and hip pain) Skin: Denies: Rash, Wound Psychiatric: Denies: Confusion, Depression, Anxiety Neurological: Denies: Confusion, Headache Hematologic/Lymphatic: Reports: Anemia L&D Exam - Exam Exam: See Below - Vital Signs Vital Signs: Last Vital Signs Temp Pulse 94 01/29/18 07:00 Resp 20 01/29/18 06:32 BP 136/86 01/29/18 07:00 Pulse Ox 99 01/29/18 06:32 Weight: 69.853 kg - OB Specific Contraction Duration (sec): 60 Contraction Frequency (min): 3-5 Contraction Intensity: Moderate to Strong Movement: Active Heart Tones: Present Heart Tones per Min: 125 (+15 x 15 accelerations, no decelerations) Heart Rate (FHR) Variability: Moderate (6-25 bmp) Presentation: Vertex Estimated Weight: 6.5-7 pounds by Julian - Santos Score Santos Score Cervix Position: Anterior Santos Score Consistency: Soft Santos Score Effacement: >80% Santos Score Dilation: 3-4 cm Santos Score Infant's Station: -1 ,0 Santos Score Total: 11 - Exam General: Alert, Oriented HEENT: Conjunctiva Clear, EOMI Neck: Supple, Trachea Midline Lungs: Clear to Auscultation, Normal Respiratory Effort Cardiovascular: Regular Rate, Regular Rhythm GI/Abdominal Exam: Soft, Non-Tender, No Distention, Other (Gravid). No: Guarding, Rebound Genitourinary: Normal external exam Back Exam: Normal Inspection Extremities: Normal Inspection, No Pedal Edema Skin: Warm, Dry, Intact Psychiatric: Alert, Normal Affect, Normal Mood - Patient Data Lab Results Last 24 hrs: Laboratory Results - last 24 hr 01/29/18 01/29/18 01/29/18 Range/Units 05:10 05:25 06:55 WBC 12.79 H (3.98-10.04) K/mm3 RBC 3.97 L (3.98-5.22) M/mm3 Hgb 9.4 L (11.2-15.7) gm/L Hct 30.3 L (34.1-44.9) % MCV 76.3 L (79.4-94.8) fl MCH 23.7 L (25.6-32.2) pg MCHC 31.0 L (32.2-35.5) g/dl RDW Std Deviation 43.2 (36.4-46.3) fL Plt Count 421 H (182-369) K/mm3 MPV 8.8 L (9.4-12.3) fl Urine Color Yellow (Yellow) Urine Appearance Clear (Clear) Urine pH 7.0 (5.0-8.0) Ur Specific [place] 1.020 (1.005-1.030) Urine Protein Negative (Negative) Urine Glucose (UA) Negative (Negative) Urine Ketones Negative (Negative) Urine Occult Blood Negative (Negative) Urine Nitrite Negative (Negative) Urine Bilirubin Negative (Negative) Urine Urobilinogen 0.2 (0.2-1.0) Ur Leukocyte Esterase Trace H (Negative) Membrane Rupture Positive H Result Diagrams: 01/29/18 05:25 - Problem List (1) 39 weeks gestation of SNOMED Code(s): 15035065 ICD Code: Z3A.39 - 39 WEEKS GESTATION OF Status: Acute Current Visit: Yes (2) Spontaneous rupture of amniotic membranes SNOMED Code(s): 553790386 ICD Code: BGC9714 - Status: Acute Current Visit: Yes (3) Chlamydia infection affecting in first trimester, antepartum SNOMED Code(s): 883748263, 350435088 ICD Code: O98.811 - OTH MATERNAL INFEC/PARASTC DISEASES COMP PREG, FIRST TRI ; A74.9 - CHLAMYDIAL INFECTION, UNSPECIFIED Status: Acute Current Visit: Yes (4) Asthma SNOMED Code(s): 905818672 ICD Code: J45.909 - UNSPECIFIED ASTHMA, UNCOMPLICATED Status: Acute Current Visit: No Qualifiers: Asthma severity: mild intermittent Asthma complication type: with acute exacerbation Qualified Code(s): J45.21 - Mild intermittent asthma with (acute ) exacerbation (5) Pyelonephritis affecting in third trimester SNOMED Code(s): 60803700, 06856755, 474039205, 548824746 ICD Code: O23.03 - INFECTIONS OF KIDNEY IN , THIRD TRIMESTER Status: Acute Current Visit: No Problem List Initiated/Reviewed/Updated: Yes Orders Last 24hrs: Active Orders 24 hr Category Date Time Status Patient Status [ADT] Routine ADT 01/29/18 05:15 Active Activity as Tolerated [RC] PFP Care 01/29/18 05:15 Active Communication Order [RC] ASDIRECTED Care 01/29/18 05:15 Active Communication Order [RC] ASDIRECTED Care 01/29/18 08:08 Ordered Communication Order [RC] ASDIRECTED Care 01/29/18 08:08 Ordered Communication Order [RC] ASDIRECTED Care 01/29/18 08:08 Ordered Monitoring [RC] INTERMITTENT Care 01/29/18 08:08 Ordered Notify Provider [RC] ASDIRECTED Care 01/29/18 04:55 Active Notify Provider [RC] ASDIRECTED Care 01/29/18 08:08 Ordered Notify Provider [RC] PFP Care 01/29/18 05:15 Active Notify Provider [RC] PRN Care 01/29/18 05:15 Active Peripheral IV Care [RC] . DIRECTED Care 01/29/18 05:16 Active Peripheral IV Care [RC] . DIRECTED Care 01/29/18 08:08 Ordered Vaginal Exam [RC] ASDIRECTED Care 01/29/18 08:08 Ordered Vital Signs [RC] PER UNIT ROUTINE Care 01/29/18 05:15 Active Regular Diet [DIET] Diet 01/29/18 Breakfast Active COMPREHENSIVE METABOLIC PN,CMP [CHEM] Routine Lab 01/29/18 08:22 Ordered CULTURE URINE [RM] Routine Lab 01/29/18 06:55 Ordered RAPID PLASMA REAGIN,RPR [CHEM] Routine Lab 01/29/18 08:22 Ordered URINALYSIS W/O MICROSCOPIC [UA W/O MICROSCOPIC] [URIN] Lab 01/29/18 06:55 Ordered Routine Bupivacaine/fentaNYL/NS [fentaNYL/Bupivacaine/NS 2 MCG- Med 01/29/18 05:00 Active 0.125% 100 ML] 100 ml EPIDUR ASDIRECTED Lactated Ringers [Ringers, Lactated] 1,000 ml Med 01/29/18 05:15 Active IV ASDIRECTED Lactated Ringers [Ringers, Lactated] 1,000 ml Med 01/29/18 08:15 Ordered IV ASDIRECTED Lidocaine 1% [Xylocaine 1%] Med 01/29/18 05:15 Active 50 ml INJECT ONETIME PRN Ondansetron [Zofran] Med 01/29/18 04:55 Active 4 mg IVPUSH ONETIME PRN Oxytocin/Lactated Ringers [Pitocin in LR 10 Units/1,000 Med 01/29/18 05:15 Active ML] 10 unit in 1,000 ml IV .CONTINUOUS Oxytocin/Lactated Ringers [Pitocin in LR 10 Units/1,000 Med 01/29/18 08:15 Ordered ML] 10 unit in 1,000 ml IV TITRATE Sodium Chloride 0.9% [Saline Flush] Med 01/29/18 05:15 Active 10 ml FLUSH ASDIRECTED PRN Sodium Chloride 0.9% [Saline Flush] Med 01/29/18 08:08 Ordered 10 ml FLUSH ASDIRECTED PRN diphenhydrAMINE [Benadryl] Med 01/29/18 04:55 Active 25 mg IVPUSH Q6H PRN ePHEDrine [ePHEDrine Sulfate] Med 01/29/18 04:55 Active 5 mg IVPUSH ASDIRECTED PRN fentaNYL [Sublimaze] Med 01/29/18 04:55 Active 100 mcg EPIDUR ONETIME PRN Electronic Heart Tones Ext w TOCO [WOMSER] Oth 01/29/18 05:15 Ordered Routine Electronic Heart Tones Internal [WOMSER] Per Unit Ot 01/29/18 05:15 Ordered Routine Peripheral IV Insertion Adult [OM.PC] Routine Oth 01/29/18 05:15 Ordered Peripheral IV Insertion Adult [OM.PC] Routine Ot 01/29/18 08:08 Ordered Resuscitation Status Routine Resus Stat 01/29/18 05:15 Ordered Medication Orders Diphenhydramine HCl (Benadryl) 25 mg IVPUSH Q6H PRN PRN Reason: Pruritis Ephedrine Sulfate (Ephedrine Sulfate) 5 mg IVPUSH ASDIRECTED PRN PRN Reason: Hypotension Fentanyl (Sublimaze) 100 mcg EPIDUR ONETIME PRN PRN Reason: Pain Last Admin: 01/29/18 06:22 Dose: 100 mcg Fentanyl/Bupivacaine HCl (Fentanyl/Bupivacaine/Ns 2 Mcg-0.125% 100 Ml) 100 ml EPIDUR ASDIRECTED ELLIOT Last Admin: 01/29/18 06:22 Dose: 100 ml Lactated Ringer's (Ringers, Lactated) 1,000 mls @ 100 mls/hr IV ASDIRECTED ELLIOT Last Admin: 01/29/18 06:36 Dose: 999 mls/hr Infusion: 01/29/18 06:36 Dose: 999 mls/hr Admin: 01/29/18 06:25 Dose: 999 mls/hr Infusion: 01/29/18 06:25 Dose: 999 mls/hr Admin: 01/29/18 05:35 Dose: 999 mls/hr Oxytocin/Lactated Ringer's (Pitocin In Lr 10 Units/1,000 Ml) 10 unit in 1,000 mls @ 500 mls/hr IV .CONTINUOUS ELLIOT Lactated Ringer's (Ringers, Lactated) 1,000 mls @ 40 mls/hr IV ASDIRECTED ELLIOT Oxytocin/Lactated Ringer's (Pitocin In Lr 10 Units/1,000 Ml) 10 unit in 1,000 mls @ 12 mls/hr IV TITRATE ELLIOT; Protocol Lidocaine HCl (Xylocaine 1%) 50 ml INJECT ONETIME PRN PRN Reason: Breakthrough Pain Ondansetron HCl (Zofran) 4 mg IVPUSH ONETIME PRN PRN Reason: Nausea/Vomiting Sodium Chloride (Saline Flush) 10 ml FLUSH ASDIRECTED PRN PRN Reason: Keep Vein Open Sodium Chloride (Saline Flush) 10 ml FLUSH ASDIRECTED PRN PRN Reason: Keep Vein Open Assessment/Plan Comment:: Refer to observation for labor Continuous monitoring Place IV and have Lactated Ringer's at 125 ml/hr May have small amounts of regular diet Activity as tolerated Epidural for pain control Plans to [breast-feed] after delivery Start Pitocin for spacing out of uterine contractions to allow for more consistent contraction pattern Anticipate vaginal delivery unless otherwise indicated
[2018-01-29] MEDS ORDERED: fentaNYL 100 MCG/2 ML SDV ONE (09:07)
[2018-01-29] MEDS ORDERED: Lidocaine 1% 50 ML MDV ONE (14:29)
--- NOTE | 2018-01-29 15:13 | PCM.DEL ---
L & D Note - General Info Date of Service: 01/29/18 Mother's Due Date: 02/02/18 - Delivery Note Labor: Spontaneous Delivery Outcome: Livebirth Infant Delivery Method: Spontaneous Vaginal Delivery-Single Presentation: Right Occiput Anterior (DAVID) Nuchal Cord: None Prep: Povidone-Iodine (Betadine Anesthesia Type: Local, Epidural Local Anesthetic Volume: Other (12 cc) Amniotic Fluid Description: Clear Episiotomy Type: None Laceration: 3rd Degree (partial) Suture type: Vicryl Suture size: 2-0 (and 3-0 Vicryl) Placenta: Intact, Spontaneous Cord: 3 Vessels Estimated Blood Loss: 250 Resuscitation Needed: Yes : Bulb Syringe, Stimulated, Warmed, [place] Used Provider: Terry Coker Score 1 min: 8 Score 5 min: 9 Delivery Comments (Free Text/Narrative):: Stage I: Ama Suárez was admitted for spontaneous labor. On admission her cervix was dilated to 4 cm. She was GBS negative. She was given an epidural for anesthesia. She had spacing out of her contractions and was started on Pitocin for augmentation of labor. She progressed to complete and pushing. Stage II: On 01/29/2018 she had a normal vaginal delivery of a live female infant at 1428. Apgars of 8 & 9. Weight of 3740 g (8 lbs 4 oz). Length of 18.5 inches. There was no nuchal cord. Infant was delivered in DAVID position. The cord was doubly clamped and cut by father of . Infant was placed on mother's abdomen. Stage III: She had a spontaneous delivery of an intact placenta in Harvey presentation. Three vessel cord. She was given pitocin and fundal massage. She had a partial third-degree laceration that was repaired with 2-0 Vicryl with interrupted [id number] sutures on the superior inferior and anterior portions of the muscle capsule and 3-0 Vicryl for the remainder of the repair in normal fashion. Mom and baby were stable to recovery. EBL of 250 mL. Terry Coker MD 3:13 PM 01/29/2018 - General Info Date of Service: 01/29/18 - Patient Data Vitals - Most Recent: Last Vital Signs Temp 36.3 C 01/29/18 09:52 Pulse 101 H 01/29/18 09:30 Resp 16 01/29/18 09:52 BP 138/64 01/29/18 09:30 Pulse Ox 99 01/29/18 06:32 Weight - Most Recent: 69.853 kg Lab Results Last 24 Hours: Laboratory Results - last 24 hr 01/29/18 01/29/18 01/29/18 Range/Units 05:10 05:25 05:25 WBC 12.79 H (3.98-10.04) K/mm3 RBC 3.97 L (3.98-5.22) M/mm3 Hgb 9.4 L (11.2-15.7) gm/L Hct 30.3 L (34.1-44.9) % MCV 76.3 L (79.4-94.8) fl MCH 23.7 L (25.6-32.2) pg MCHC 31.0 L (32.2-35.5) g/dl RDW Std Deviation 43.2 (36.4-46.3) fL Plt Count 421 H (182-369) K/mm3 MPV 8.8 L (9.4-12.3) fl Sodium 136 (136-145) mEq/L Potassium 3.5 (3.5-5.1) mEq/L Chloride 104 (98-107) mEq/L Carbon Dioxide 18 L (21-32) mEq/L Anion Gap 17.5 H (5-15) BUN 8 (7-18) mg/dL Creatinine 0.8 (0.55-1.02) mg/dL Est Cr Clr Drug Dosing 88.72 mL/min Estimated GFR (MDRD) > 60 (>60) mL/min BUN/Creatinine Ratio 10.0 L (14-18) Glucose 95 (74-106) mg/dL Calcium 9.1 (8.5-10.1) mg/dL Total Bilirubin 0.3 (0.2-1.0) mg/dL AST 18 (15-37) U/L ALT 16 (14-59) U/L Alkaline Phosphatase 169 H (46-116) U/L Total Protein 7.5 (6.4-8.2) g/dl Albumin 2.9 L (3.4-5.0) g/dl Globulin 4.6 gm/dL Albumin/Globulin Ratio 0.6 L (1-2) Urine Color (Yellow) Urine Appearance (Clear) Urine pH (5.0-8.0) Ur Specific [place] (1.005-1.030) Urine Protein (Negative) Urine Glucose (UA) (Negative) Urine Ketones (Negative) Urine Occult Blood (Negative) Urine Nitrite (Negative) Urine Bilirubin (Negative) Urine Urobilinogen (0.2-1.0) Ur Leukocyte Esterase (Negative) Membrane Rupture Positive H RPR Non-reactive (NONREACTIVE) 01/29/18 Range/Units 06:55 WBC (3.98-10.04) K/mm3 RBC (3.98-5.22) M/mm3 Hgb (11.2-15.7) gm/L Hct (34.1-44.9) % MCV (79.4-94.8) fl MCH (25.6-32.2) pg MCHC (32.2-35.5) g/dl RDW Std Deviation (36.4-46.3) fL Plt Count (182-369) K/mm3 MPV (9.4-12.3) fl Sodium (136-145) mEq/L Potassium (3.5-5.1) mEq/L Chloride (98-107) mEq/L Carbon Dioxide (21-32) mEq/L Anion Gap (5-15) BUN (7-18) mg/dL Creatinine (0.55-1.02) mg/dL Est Cr Clr Drug Dosing mL/min Estimated GFR (MDRD) (>60) mL/min BUN/Creatinine Ratio (14-18) Glucose (74-106) mg/dL Calcium (8.5-10.1) mg/dL Total Bilirubin (0.2-1.0) mg/dL AST (15-37) U/L ALT (14-59) U/L Alkaline Phosphatase (46-116) U/L Total Protein (6.4-8.2) g/dl Albumin (3.4-5.0) g/dl Globulin gm/dL Albumin/Globulin Ratio (1-2) Urine Color Yellow (Yellow) Urine Appearance Clear (Clear) Urine pH 7.0 (5.0-8.0) Ur Specific [place] 1.020 (1.005-1.030) Urine Protein Negative (Negative) Urine Glucose (UA) Negative (Negative) Urine Ketones Negative (Negative) Urine Occult Blood Negative (Negative) Urine Nitrite Negative (Negative) Urine Bilirubin Negative (Negative) Urine Urobilinogen 0.2 (0.2-1.0) Ur Leukocyte Esterase Trace H (Negative) Membrane Rupture RPR (NONREACTIVE) Med Orders - Current: Current Medications Diphenhydramine HCl (Benadryl) 25 mg IVPUSH Q6H PRN PRN Reason: Pruritis Ephedrine Sulfate (Ephedrine Sulfate) 5 mg IVPUSH ASDIRECTED PRN PRN Reason: Hypotension Fentanyl (Sublimaze) 100 mcg EPIDUR ONETIME PRN PRN Reason: Pain Last Admin: 01/29/18 09:20 Dose: 100 mcg Fentanyl/Bupivacaine HCl (Fentanyl/Bupivacaine/Ns 2 Mcg-0.125% 100 Ml) 100 ml EPIDUR ASDIRECTED ELLIOT Last Admin: 01/29/18 13:05 Dose: 100 ml Lactated Ringer's (Ringers, Lactated) 1,000 mls @ 100 mls/hr IV ASDIRECTED ELLIOT Last Admin: 01/29/18 11:42 Dose: 250 mls/hr Oxytocin/Lactated Ringer's (Pitocin In Lr 10 Units/1,000 Ml) 10 unit in 1,000 mls @ 500 mls/hr IV .CONTINUOUS ELLIOT Lactated Ringer's (Ringers, Lactated) 1,000 mls @ 40 mls/hr IV ASDIRECTED ELLIOT Oxytocin/Lactated Ringer's (Pitocin In Lr 10 Units/1,000 Ml) 10 unit in 1,000 mls @ 12 mls/hr IV TITRATE ELLIOT; Protocol Last Titration: 01/29/18 10:25 Dose: 4 munits/min, 24 mls/hr Lidocaine HCl (Xylocaine 1%) 50 ml INJECT ONETIME PRN PRN Reason: Breakthrough Pain Ondansetron HCl (Zofran) 4 mg IVPUSH ONETIME PRN PRN Reason: Nausea/Vomiting Last Admin: 01/29/18 10:22 Dose: 4 mg Sodium Chloride (Saline Flush) 10 ml FLUSH ASDIRECTED PRN PRN Reason: Keep Vein Open Sodium Chloride (Saline Flush) 10 ml FLUSH ASDIRECTED PRN PRN Reason: Keep Vein Open Discontinued Medications Fentanyl (Sublimaze) Confirm Administered Dose 100 mcg .ROUTE .STK-MED ONE Stop: 01/29/18 09:08 Last Admin: 01/29/18 10:01 Dose: Not Given Lactated Ringer's (Ringers, Lactated) Confirm Administered Dose 1,000 mls @ as directed .ROUTE .STK-MED ONE Stop: 01/29/18 05:25 Last Admin: 01/29/18 07:12 Dose: Not Given Lidocaine HCl (Xylocaine 1%) Confirm Administered Dose 50 ml .ROUTE .STK-MED ONE Stop: 01/29/18 14:30 - Problem List & Annotations (1) 39 weeks gestation of SNOMED Code(s): 51559601 Code(s): Z3A.39 - 39 WEEKS GESTATION OF Status: Acute Current Visit: Yes (2) Spontaneous rupture of amniotic membranes SNOMED Code(s): 354234016 Code(s): EDV4371 - Status: Acute Current Visit: Yes (3) Chlamydia infection affecting in first trimester, antepartum SNOMED Code(s): 228798077, 340528432 Code(s): O98.811 - OTH MATERNAL INFEC/PARASTC DISEASES COMP PREG, FIRST TRI; A74.9 - CHLAMYDIAL INFECTION, UNSPECIFIED Status: Acute Current Visit: Yes (4) Asthma SNOMED Code(s): 360634306 Code(s): J45.909 - UNSPECIFIED ASTHMA, UNCOMPLICATED Status: Acute Current Visit: No Qualifiers: Asthma severity: mild intermittent Asthma complication type: with acute exacerbation Qualified Code(s): J45.21 - Mild intermittent asthma with (acute ) exacerbation (5) Pyelonephritis affecting in third trimester SNOMED Code(s): 33833721, 25433616, 217837851, 201509121 Code(s): O23.03 - INFECTIONS OF KIDNEY IN , THIRD TRIMESTER Status : Acute Current Visit: No (6) Vaginal delivery SNOMED Code(s): 411859124 Code(s): O80 - ENCOUNTER FOR FULL-TERM UNCOMPLICATED DELIVERY Status: Acute Current Visit: Yes (7) Third degree laceration of perineum during delivery, SNOMED Code(s): 474084306 Code(s): O70.20 - THIRD DEGREE PERINEAL LACERATION DURING DELIVERY, UNSP Status: Acute Current Visit: Yes - Problem List Review Problem List Initiated/Reviewed/Updated: Yes - My Orders Last 24 Hours: My Active Orders 01/29/18 05:15 Patient Status [ADT] Routine Activity as Tolerated [RC] PFP Communication Order [RC] ASDIRECTED Notify Provider [RC] PFP Notify Provider [RC] PRN Vital Signs [RC] 09,15,21,03 Lactated Ringers [Ringers, Lactated] 1,000 ml IV ASDIRECTED Lidocaine 1% [Xylocaine 1%] 50 ml INJECT ONETIME PRN Oxytocin/Lactated Ringers [Pitocin in LR 10 Units/1,000 ML] 10 unit in 1,000 ml IV .CONTINUOUS Sodium Chloride 0.9% [Saline Flush] 10 ml FLUSH ASDIRECTED PRN Electronic Heart Tones Ext w TOCO [WOMSER] Routine Electronic Heart Tones Internal [WOMSER] Per Unit Routine Peripheral IV Insertion Adult [OM.PC] Routine Resuscitation Status Routine 01/29/18 05:16 Peripheral IV Care [RC] . DIRECTED 01/29/18 06:55 CULTURE URINE [RM] Routine URINALYSIS W/O MICROSCOPIC [UA W/O MICROSCOPIC] [URIN] Routine 01/29/18 08:08 Communication Order [RC] ASDIRECTED Communication Order [RC] ASDIRECTED Communication Order [RC] ASDIRECTED Monitoring [RC] INTERMITTENT Notify Provider [RC] ASDIRECTED Peripheral IV Care [RC] . DIRECTED Vaginal Exam [RC] ASDIRECTED Sodium Chloride 0.9% [Saline Flush] 10 ml FLUSH ASDIRECTED PRN Peripheral IV Insertion Adult [OM.PC] Routine 01/29/18 08:15 Lactated Ringers [Ringers, Lactated] 1,000 ml IV ASDIRECTED Oxytocin/Lactated Ringers [Pitocin in LR 10 Units/1,000 ML] 10 unit in 1,000 ml IV TITRATE 01/29/18 Breakfast Regular Diet [DIET] - Plan Plan:: Admit to inpatient following normal spontaneous vaginal delivery Continue Pitocin per unit protocol following delivery of placenta and lactated Ringer's until tolerating regular diet Regular diet Vitals per unit routine Ibuprofen and Tylenol for pain control Assist with breast-feeding as needed Continue to monitor lochia Anticipate discharge home on day #2
[2018-01-29] MEDS ORDERED: Acetaminophen 325 MG Tab PO PRN (15:35)
[2018-01-29] MEDS ORDERED: Witch Hazel Medicated Pads 100/Jar TOP PRN (15:35)
[2018-01-29] MEDS ORDERED: Lanolin 100% Cream 7 GM Tube TOP PRN (15:35)
[2018-01-29] MEDS ORDERED: Benzocaine/Menthol 20%-0.5% Spray 56 GM Canister TOP PRN (15:35)
[2018-01-29] MEDS ORDERED: Magnesium Hydroxide 400 MG/5 ML Susp 30 ML Cup PO PRN (15:35)
[2018-01-29] MEDS ORDERED: Docusate Sodium 100 MG Cap PO PRN (15:35)
[2018-01-29] MEDS ORDERED: Lidocaine 1% 20 ML MDV INJECT ONE (15:35)
[2018-01-29] MEDS ORDERED: Hydrocortisone Acetate 25 MG Supp RECTAL PRN (15:35)
[2018-01-29] MEDS: Ibuprofen 600 MG Tab PO PRN (16:31)
[2018-01-29] MEDS ORDERED: Lidocaine 1.5% with EPINEPHrine 1:200,000 5 ML Amp ONE (22:00)
[2018-01-29] MEDS ORDERED: Bupivacaine 0.25% 10 ML SDV ONE (22:00)
[2018-01-30] MEDS: Ibuprofen 600 MG Tab PO PRN (02:37)
[2018-01-30] MEDS ORDERED: Prenatal Multivitamin with Calcium/Folic Acid/Iron Tab PO SCH (09:00)
--- NOTE | 2018-01-30 09:05 | PCM.DCSUM1 ---
Discharge Summary - Hospital Course Free Text/Narrative:: Feeling well. Expresses desire for discharge home. - Discharge Data Discharge Date: 01/30/18 Discharge Disposition: Home, Self-Care 01 Condition: Good - Patient Summary/Data Operative Procedure(s) Performed: Hospital Course: Stage I: Ama Suárez was admitted for spontaneous labor. On admission her cervix was dilated to 4 cm. She was GBS negative. She was given an epidural for anesthesia. She had spacing out of her contractions and was started on Pitocin for augmentation of labor. She progressed to complete and pushing. Stage II: On 01/29/2018 she had a normal vaginal delivery of a live female at 1428. Apgars of 8 & 9. Weight of 3740 g (8 lbs 4 oz). Length of 18.5 inches. There was no nuchal cord. was delivered in DAVID position. The cord was doubly clamped and cut by father of infant. Infant was placed on mother's abdomen. Stage III: She had a spontaneous delivery of an intact placenta in Harvey presentation. Three vessel cord. She was given pitocin and fundal massage. She had a partial third-degree laceration that was repaired with 2-0 Vicryl with interrupted [id number] sutures on the superior inferior and anterior portions of the muscle capsule and 3-0 Vicryl for the remainder of the repair in normal fashion. Mom and baby were stable to recovery. EBL of 250 mL. - Patient Instructions Diet: Usual Diet as Tolerated Activity: No Strenuous Activities Activity, Other: pelvic rest, keep stools soft, colace scheduled and MOM if needed Driving: May Drive Today Showering/Bathing: May Shower Notify Provider of: Fever, Increased Pain, Swelling and Redness, Drainage, Nausea and/or Vomiting - Discharge Plan Home Medications: Home Meds Vits #93/Iron Fum/FA [ Formula Tablet] 1 tab PO DAILY 10/10/17 [History] Docusate Sodium [Colace] 100 mg PO Q12H cap 11/12/17 [Rx] Acetaminophen/oxyCODONE [Percocet 325-5 MG] 1 - 2 tab PO Q6HR PRN 12/03/17 [ History] Referrals: Terry Coker MD [Primary Care Provider] - (2-3 weeks) - Discharge Summary/Plan Comment DC Time >30 min.: No - General Info Date of Service: 01/30/18 Functional Status: Reports: Pain Controlled - Review of Systems General: Reports: No Symptoms HEENT: Reports: No Symptoms Pulmonary: Reports: No Symptoms Cardiovascular: Reports: No Symptoms Gastrointestinal: Reports: No Symptoms Genitourinary: Reports: No Symptoms Musculoskeletal: Reports: No Symptoms Skin: Reports: No Symptoms Neurological: Reports: No Symptoms Psychiatric: Reports: No Symptoms - Patient Data Vitals - Most Recent: Last Vital Signs Temp 36.7 C 01/29/18 22:54 Pulse 90 01/29/18 22:54 Resp 18 01/29/18 22:54 BP 119/52 L 01/29/18 22:54 Pulse Ox 95 01/29/18 22:54 Weight - Most Recent: 69.853 kg I&O - Last 24 hours: Intake & Output 01/29/18 01/30/18 01/30/18 22:59 06:59 14:59 Intake Total 5300 Balance 5300 Lab Results - Last 24 hrs: Laboratory Results - last 24 hr 01/29/18 Range/Units 05:25 RPR Non-reactive (NONREACTIVE) Med Orders - Current: Current Medications Acetaminophen (Tylenol) 650 mg PO Q6H PRN PRN Reason: mild pain or fever Last Admin: 01/29/18 21:22 Dose: 650 mg Benzocaine/Menthol (Dermoplast Pain Relief [place]) 0 gm TOP ASDIRECTED PRN PRN Reason: Perineal Comfort Measure Last Admin: 01/29/18 16:31 Dose: 1 can Docusate Sodium (Colace) 100 mg PO BID PRN PRN Reason: Constipation Emollient Ointment (Lansinoh Hpa) 0 gm TOP ASDIRECTED PRN PRN Reason: Sore Nipples Hydrocortisone Acetate (Anucort-Hc) 25 mg RECTAL BID PRN PRN Reason: Hemorrhoid pain Oxytocin/Lactated Ringer's (Pitocin In Lr 10 Units/1,000 Ml) 10 unit in 1,000 mls @ 100 mls/hr IV TITRATE ELLIOT; Protocol Ibuprofen (Motrin) 600 mg PO Q6H PRN PRN Reason: Mild pain or fever Last Admin: 01/30/18 02:37 Dose: 600 mg Magnesium Hydroxide (Milk Of Magnesia) 30 ml PO BEDTIME PRN PRN Reason: Constipation Prenat Multivit/[place]/Iron/Folic Ac ( Plus Iron) 1 each PO DAILY [facility] Connie Up (Tucks) 1 pad TOP ASDIRECTED PRN PRN Reason: Hemorrhoid pain Last Admin: 01/29/18 16:31 Dose: 1 jar Discontinued Medications Diphenhydramine HCl (Benadryl) 25 mg IVPUSH Q6H PRN PRN Reason: Pruritis Ephedrine Sulfate (Ephedrine Sulfate) 5 mg IVPUSH ASDIRECTED PRN PRN Reason: Hypotension Fentanyl (Sublimaze) 100 mcg EPIDUR ONETIME PRN PRN Reason: Pain Last Admin: 01/29/18 09:20 Dose: 100 mcg Fentanyl (Sublimaze) Confirm Administered Dose 100 mcg .ROUTE .LinguaNext-GradFly ONE Stop: 01/29/18 09:08 Last Admin: 01/29/18 10:01 Dose: Not Given Fentanyl/Bupivacaine HCl (Fentanyl/Bupivacaine/Ns 2 Mcg-0.125% 100 Ml) 100 ml EPIDUR ASDIRECTED [facility] Last Admin: 01/29/18 13:05 Dose: 100 ml Lactated Ringer's (Ringers, Lactated) 1,000 mls @ 100 mls/hr IV ASDIRECTED ELLIOT Last Admin: 01/29/18 11:42 Dose: 250 mls/hr Oxytocin/Lactated Ringer's (Pitocin In Lr 10 Units/1,000 Ml) 10 unit in 1,000 mls @ 500 mls/hr IV .CONTINUOUS ELLIOT Lactated Ringer's (Ringers, Lactated) Confirm Administered Dose 1,000 mls @ as directed .ROUTE .STSplashCast-MED ONE Stop: 01/29/18 05:25 Last Admin: 01/29/18 07:12 Dose: Not Given Lactated Ringer's (Ringers, Lactated) 1,000 mls @ 40 mls/hr IV ASDIRECTED [facility] Oxytocin/Lactated Ringer's (Pitocin In Lr 10 Units/1,000 Ml) 10 unit in 1,000 mls @ 12 mls/hr IV TITRATE ELLIOT; Protocol Last Titration: 01/29/18 10:25 Dose: 4 munits/min, 24 mls/hr Lidocaine HCl (Xylocaine 1%) 50 ml INJECT ONETIME PRN PRN Reason: Breakthrough Pain Last Admin: 01/29/18 14:35 Dose: 50 ml Lidocaine HCl (Xylocaine 1%) Confirm Administered Dose 50 ml .ROUTE .STK-MED ONE Stop: 01/29/18 14:30 Last Admin: 01/29/18 19:15 Dose: Not Given Lidocaine HCl (Xylocaine 1%) 30 ml INJECT ONETIME ONE Stop: 01/29/18 15:36 Last Admin: 01/29/18 19:17 Dose: Not Given Ondansetron HCl (Zofran) 4 mg IVPUSH ONETIME PRN PRN Reason: Nausea/Vomiting Last Admin: 01/29/18 10:22 Dose: 4 mg Sodium Chloride (Saline Flush) 10 ml FLUSH ASDIRECTED PRN PRN Reason: Keep Vein Open Sodium Chloride (Saline Flush) 10 ml FLUSH ASDIRECTED PRN PRN Reason: Keep Vein Open - Exam General: Reports: Alert, Oriented HEENT: Reports: Pupils Equal, Pupils Reactive, EOMI, Mucous Membr. Moist/[place]ck: Reports: Supple Lungs: Reports: Clear to Auscultation, Normal Respiratory Effort Cardiovascular: Reports: Regular Rate, Regular Rhythm GI/Abdominal Exam: Normal Bowel Sounds, Soft, Non-Tender, No Organomegaly, No Distention, No Abnormal Bruit, No Mass, Pelvis Stable (Female) Exam: Normal Speculum Exam Rectal (Female) Exam: Normal Exam, Normal Rectal Tone Back Exam: Reports: Normal Inspection, Full Range of Motion Extremities: Normal Inspection, Normal Range of Motion, Non-Tender, No Pedal Edema, Normal Capillary Refill Skin: Reports: Warm, Dry, Intact Wound/Incisions: Reports: Healing Well Neurological: Reports: No New Focal Deficit Psy/Mental Status: Reports: Alert, Normal Affect, Normal Mood
[2018-01-30 16:05] VITALS: BP 122/79
== END 2018-01-30 15:30 | disposition home or self-care (01) | DRG 775 ==
LOC: JD.OBCHECK 04:37 → JD.OB 04:37 → JD.OBCHECK 05:14 → JD.OB 05:15 → OBSVTOIN 14:28 → JD.OB 14:29
PROVIDERS: ADMIT Obstetrics & Gynecology; ATTEND Obstetrics & Gynecology
PROC: 10E0XZZ Delivery of Products of Conception, External Approach (ICD-10-PCS; principal; 2018-01-29)
PROC: 0DQR0ZZ Repair Anal Sphincter, Open Approach (ICD-10-PCS; 2018-01-29)
PROC: 00HU33Z Insertion of Infusion Device into Spinal Canal, Percutaneous Approach (ICD-10-PCS; 2018-01-29)
PROC: 3E0R3BZ Introduction of Anesthetic Agent into Spinal Canal, Percutaneous Approach (ICD-10-PCS; 2018-01-29)
DX: O99.52 Diseases of the respiratory system complicating childbirth (principal); O70.20 Third degree perineal laceration during delivery, unspecified; Z3A.39 39 weeks gestation of pregnancy; Z37.0 Single live birth; J45.20 Mild intermittent asthma, uncomplicated
CPT/HCPCS: 36415; 51702; 59025; 59300; 59409; 80053; 81003; 84112; 85027; 86592; 87086; A9270-GY; J2405; J2590; J3010; J7120